=== PATIENT | female | born 1960 | race Two or more races ===

== ENCOUNTER 2024-07-19 10:11 | Outpatient (REF) | payer OTHER, SELFPAY ==
--- NOTE | ~2024-07-19 | XR_ITS ---
EXAMINATION: XR LEFT HIP XR PELVIS CLINICAL INFORMATION: Left hip pain. COMPARISON: None available. TECHNIQUE: AP and frog-leg lateral views of the left hip and an AP view of the pelvis. FINDINGS: Bones are osteopenic. Spinal stimulator device overlies the right iliac wing with lead overlying the left sacral ala. Mild osteoarthritis in the hips is characterized primarily by marginal osteophytes. Joint spaces are well-preserved. Mild osteoarthritis in the SI joints. No fractures. Enthesopathic spurs are present at the bilateral greater trochanters and anterior superior iliac spines. Chain kim in the central pelvis. XR/XR pelvis min 3V IMPRESSION: Mild osteoarthritis in the hips and SI joints. No acute osseous findings. Electronically signed by: Marquise Haji MD 07/25/2024 05:43 PM EDT
--- NOTE | ~2024-07-19 | XR_ITS ---
EXAMINATION: XR LEFT HIP XR PELVIS CLINICAL INFORMATION: Left hip pain. COMPARISON: None available. TECHNIQUE: AP and frog-leg lateral views of the left hip and an AP view of the pelvis. FINDINGS: Bones are osteopenic. Spinal stimulator device overlies the right iliac wing with lead overlying the left sacral ala. Mild osteoarthritis in the hips is characterized primarily by marginal osteophytes. Joint spaces are well-preserved. Mild osteoarthritis in the SI joints. No fractures. Enthesopathic spurs are present at the bilateral greater trochanters and anterior superior iliac spines. Chain kim in the central pelvis. XR/XR hip LT min 2V IMPRESSION: Mild osteoarthritis in the hips and SI joints. No acute osseous findings. Electronically signed by: Marquise Haji MD 07/25/2024 05:43 PM EDT
== END 2024-07-19 10:12 | disposition home or self-care (01) ==
LOC: HO.HOSX 10:11
PROVIDERS: Visit Provider Physician Assistant
DX: M25.552 Pain in left hip (principal); M53.3 Sacrococcygeal disorders, not elsewhere classified; G89.29 Other chronic pain
CPT/HCPCS: 72190; 73502; 99202

== ENCOUNTER 2024-07-19 10:11 | Outpatient (AMB) | payer OTHER, SELFPAY ==
--- NOTE | 2024-07-19 10:23 | HO.SPINEOV ---
Intake Visit Reasons: LBP Intake Note: Ms. Ankit Leon is here today c/o Low back pain. Commercial Drafter Required: No Allergies No Known Allergies [No Known Allergies*] Allergy (Unverified 07/27/20 15:01) Assessment & Plan Assessment & Plan (1) Left hip pain: Code(s): M25.552 - Pain in left hip Category: Medical (2) Chronic SI joint pain: Code(s): M53.3 - Sacrococcygeal disorders, not elsewhere classified; G89.29 - Other chronic pain Category: Medical Plan Dear Gautam, Thank you for referring Mrs Ankit Leon to our office today. She is a very nice 64-year-old female with a history of a previous lumbar surgery done 40 years ago who presents to the office today for evaluation of chronic left buttock pain going down into her anterior lateral thigh and her outer calf after a fall she took in November. She underwent 2 injections at your office, the L5-S1 level epidural, and did not see any significant relief from these. She has terrible amount of pain with standing and walking but also can not sit on her left buttock. She will take kgmo-uac-apeihib medications as needed. The pain can also be troublesome at night, she will have to sleep with some kind of pillow or firm object pushing on her back to try to help with the symptoms. She will take [id number]-trvrybm medications as needed for pain. She is here today for evaluation of the lumbar MRI done at [facility] showing possible crowding of the lateral recess at L5-S1. PMH: She is a diabetic, she has fibromyalgia, chronic pain, asthma, irregular heartbeats, chronic kidney disease, rheumatoid arthritis, stomach ulcers, , carpal tunnel release, cholecystectomy, gastric bypass, hernia repair, knee surgery, implantation of a sacral stimulator Social hx: She does not smoke, drink use any recreational drugs. Medications: Meloxicam, Tylenol, albuterol, omeprazole, vitamin-D, Motegrity, VESIcare, tramadol, Zofran, cetirizine, diclofenac, donepezil, duloxetine, amantadine, Asmanex, naltrexone Allergies: None Physical exam: She is awake alert oriented no acute distress, she is uncomfortable sitting in a chair, leaning to her right side. Her motor exam does not reveal any specific deficits, she has pain with movement of her left leg. She does not have a straight leg raise sign or any reproducible pain with straight leg raise movements. She does have significant pain very reproducible to what she feels on a daily basis with internal rotation of her hip and RAMY testing. Compression testing in a lateral position of the SI joint does reveal reproducible pain as well. Imaging review: There is a lumbar MRI done at [facility] in January of 2024 showing mild degenerative disc disease, there is some crowding of the left rule out lateral recess at L5-S1. For some reason the radiologist labeled this the S5 nerve root, but it would be the S1 nerve root in the lateral recess at L5-S1. It is not a significant amount of compression, but there is some crowding around the nerve. Impression: 64-year-old female, history of previous back surgery 40 years ago, who fell back in November in his now been having intense left buttock pain which will radiate down into her left anterior tibial region at times. It can be aggravated with walking, but is also present at rest and when she is lying on her left side at night. She has had 2 injections at the L5-S1 level with no appreciable relief of her symptoms. The MRI does show some crowding of this area. It is unusual that she did not get any relief from the injections if this was the source of her pain. She does have reproducible pain similar to what she has on a daily basis with SI joint provocative testing. It is well-known that the SI joint does approximate the L5 nerve in the pelvis and can reproduce symptoms similar to a lumbar radiculopathy and that we could be dealing with a traumatic SI joint inflammation or instability. I am wondering if she got an injection to this area it would help shed some light on the diagnosis. If the injection helped significantly, we could possibly consider SI joint fusion. Usually Dr. Fitch would want to serial injections with at least 80% improvement before confirming that diagnosis and offering surgery however. Thank you for allowing us to care for your patient. The total time spent with this visit with this patient was 45 minutes reviewing history, physical exam, lumbar imaging review, and implementation of treatment plan or further diagnostic testing Edi Fitch MD,PhD [facility] Orders: Orders XR pelvis min 3V Today G89.29 - Other chronic pain, M53.3 - Sacrococcygeal disorders, not elsewhere classified XR hip LT min 2V Today M25.552 - Pain in left hip Coding Level of Care Code New Pt Level 4 (88266) Diagnoses Left hip pain M25.552 Chronic SI joint pain M53.3; G89.29
== END 2024-07-19 11:20 | disposition home or self-care (01) ==
PROVIDERS: PCP Family Medicine Geriatric Medicine; Referring Provider Physician Assistant; Visit Provider Physician Assistant
DX: M25.552 Pain in left hip (principal); M53.3 Sacrococcygeal disorders, not elsewhere classified; G89.29 Other chronic pain
CPT/HCPCS: 99204

== ENCOUNTER 2025-04-25 13:48 | Outpatient (AMB) | payer MEDICAID, SELFPAY ==
--- NOTE | 2025-04-25 13:49 | HO.SPINEOV ---
Intake Visit Reasons: persisting pain Intake Note: Ms. Ankit Leon is here today c/o persisting back pain. 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 We saw her last year for an evaluation of back pain as well as pain on the the left SI joint that happened after a fall. She underwent an injection at the L5-S1 level with no relief in her symptoms. She continues to complain of midline back pain as well as the pain over the SI joint. Her previous MRI did not reveal any significant findings that we thought would lend itself to surgery, especially in light of the fact that she did not respond to the injections in that area with any positive improvement. We considered an alternate diagnosis of left SI joint inflammation after fall. At the time she was not all that interested in pursuing the injections, but she is back today to report that she is continuing to have pain and discomfort in that area and would like to have the injections. She is still localizes the pain over this area and is tender to palpation. Her gait is normal and again strength is normal. I will refer her back to for consideration of left SI joint injections with an eye toward SI joint fusion if she has to successive injections with at least 80% improvement in her pain. Total amount of time spent in this visit was 20 minutes in discussion of symptoms, previous lumbar MRI imaging results and subsequent plan of care Edi Fitch MD,PhD [facility] Orders: Referrals Physiatry Referral G89.29 - Other chronic pain, M53.3 - Sacrococcygeal disorders, not elsewhere classified Coding Level of Care Code Est Pt Level 3 (06105) Diagnoses Chronic SI joint pain M53.3; G89.29
--- OUTSIDE RECORDS SUMMARY | 2025-04-25 15:26 | XMS_ITS | Encounter Summary ---
Author Organization [facility] Address [address] [place] [address] Care Team Providers Care Supervisor [employer]intering [employer] Name Role Phone Sheba Wright MD Primary Care Provider [phone] Reason for Visit * Reason Onset Date Comments prior authorization 04/25/2025 Zepbound 2.5 MG Encounter Details Date Type Department Care Team ([facility] st Contact Info) Description 04/25/2025 Telephone Bariatric Surgery - [place] [address] [place] [phone] Marcos Curtis MD [address] [place] [address] prior authorization (Zepbound 2.5 MG) Social History Tobacco Use Types Packs/Day Years Used Date Smoking Tobacco: Never Smokeless Tobacco: Never Alcohol Use Standard Drinks/Week Comments Yes 0 (1 standard drink = 0.6 oz pur e alcohol) Comments No Sex and Gender Information Value Date Recorded Sex Assigned at Female 11/29/2024 5:01 PM EST Legal Sex Female 7:05 AM EST Gender Identity Female 11/29/2024 5:01 PM EST Sexual Orientation Straight 11/30/2024 9: 04 AM EST documented as of this encounter Functional Status * Are you deaf or do you have serious difficulty hearing? Answer Date of Assessment Author No 02/11/2025 1:04 AM Skinny Guido RN * Are you blind or do you have serious difficulty seeing, even when wearing glasses? Answer Date of Assessment Author No 02/11/2025 1:04 AM Skinny Guido RN * Do you have serious difficulty walking or climbing stairs? Answer Date of Assessment Author No 02/11/2025 1:04 AM EDT Skinny Clifton RN * Do you have serious difficulty dressing or bathing? Answer Date of Assessment Author No 02/11/2025 1:04 AM EDT Skinny Clifton RN * Because of a physical, mental, or emotional condition, do you have serious difficulty doing errandsalone such as visiting the doctor? Answer Date of Assessment Author No 02/11/2025 1:04 AM EDT Skinny Clifton RN documented as of this encounter Mental Status * Because of a physical, mental, or emotional condition, do you have serious difficulty concentrating, remembering, or making decisions? (5 years old or older) Answer Entry Date Author No 02/11/2025 1:04 AM EDT Skinny Clifton RN documented in this encounter Progress Notes * Hillary Norwood - 04/25/2025 10:09 AM EDT Patient is asking for a call in reference to her prior auth for Zepbound 2.5 MG She can be reached at [phone] documented in this encounter Plan of Treatment Upcoming Encounters Date Type Department Care Team (Late st Contact Info) Description 05/05/2025 10:30 AM EDT Consult Orthopedic Surgery - [place] [address] [facility] [address] [place] [phone] Davy Gardner DPM [address] [facility] [address] [place] [address] 06/16/2025 10:45 AM EDT Office Visit Bariatric Surgery - [place] [address] [facility] [address] [place] [phone] Marcos Curtis MD [address] [facility] [address] [place] [address] 07/28/2025 11:10 AM EDT Office Visit Gastroenterology - [place] [address] [facility] [address] [facility] [address] [place] [phone] Mary Silverman PA [address] [facility] [address] [place] [address] 08/04/2025 11:00 AM EDT Office Visit Orthopedic Surgery - [place] [address] [facility] [address] [place] [phone] Bonnie Harding PA [address] [facility] [address] [place] [address] documented as of this encounter Goals Goal Patient Goal Type Associated Problems Recent Progress Patient-Stated? Author PT STGs General No Marcos Power PT Note: Pt will be compliant with MD ENNIS protocol - inconsistent Pt will increase right shoulder PROM flexion to 90 degrees - Met Pt will increase right shoulder PROM abduction to 90 degrees - met Pt will increase right shoulder PROM ER to 30 degrees, measured with shoulder at 0 degree abduction - not met documented as of this encounter Visit Diagnoses Not on filedocumented in this encounter Care Teams Supervisor [employer]intering [employer] Relationship Specialty Start Date End Date Sheba Wright MD [address] [place] [address] PCP - General Internal Medicine 08/22/21 documented as of this encounter
== END 2025-04-25 14:12 | disposition home or self-care (01) ==
PROVIDERS: Visit Provider Physician Assistant
DX: M53.3 Sacrococcygeal disorders, not elsewhere classified (principal); G89.29 Other chronic pain
CPT/HCPCS: 99213

== ENCOUNTER → 2025-04-25 13:48 | Outpatient (BNVA) | payer MEDICAID, SELFPAY | PROVIDERS: Visit Provider Physician Assistant | DX: M53.3 Sacrococcygeal disorders, not elsewhere classified (principal); G89.29 Other chronic pain | CPT/HCPCS: 99212 ==

== ENCOUNTER 2025-09-22 10:12 | Outpatient (AMB) | payer MEDICAID, SELFPAY ==
--- OUTSIDE RECORDS SUMMARY | 2025-09-21 08:30 | XMS_ITS | Encounter Summary ---
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 Name Role Phone Sheba Wright MD Primary Care Provider [phone] Reason for Referral * Orthopedic (Routine) - Pending Review Specialty Diagnoses / Procedures Referred By Contac t Referred To Contact Orthopedic Surgery / Orthopaedic Surgery Diagnoses S/P right rotator cuff repair Bursitis of right shoulder Chronic right shoulder pain Procedures L Inj/Asp: R subacromial bursa Bonnie Harding PA [address] [address] Phone: tel: fax: Referral ID Status Reason Start Date Expiration Date V isits Requested Visits Authorized [id number] Pending Review 09/21/2025 09/21/2026 1 1 Reason for Visit * Reason Comments Follow-up Encounter Details Date Type Department Care Team (Late st Contact Info) Description 09/21/2025 8:30 AM EST Office Visit Orthopedic Surgery - [place] [address] [phone] Bonnie Harding PA [address] [address] S/P right rotator cuff repair (Primary Dx); Bursitis of right shoulder; Chronic right shoulder pain Social History Tobacco Use Types Packs/Day Years Used Date Smoking Tobacco: Never Smokeless Tobacco: Never Alcohol Use Standard Drinks/Week Comments Yes 0 (1 standard drink = 0.6 oz pur e alcohol) weekends 1-3 Comments No Sex and Gender Information Value Date Recorded Sex Assigned at Female 11/29/2024 5:01 PM EST Legal Sex Female 7:05 AM EST Gender Identity Female 11/29/2024 5:01 PM EST Sexual Orientation Straight 11/30/2024 9: 04 AM EST documented as of this encounter Functional Status * Are you deaf or do you have serious difficulty hearing? Answer Date of Assessment Author No 07/04/2025 7:46 AM Pj Irwin RN * Are you blind or do you have serious difficulty seeing, even when wearing glasses? Answer Date of Assessment Author No 07/04/2025 7:46 AM Pj Irwin RN * Do you have serious difficulty walking or climbing stairs? Answer Date of Assessment Author No 07/04/2025 7:46 AM Pj Irwin RN * Do you have serious difficulty dressing or bathing? Answer Date of Assessment Author No 07/04/2025 7:46 AM Pj Irwin RN * Because of a physical, mental, or emotional condition, do you have serious difficulty doing errandsalone such as visiting the doctor? Answer Date of Assessment Author No 07/04/2025 7:46 AM Pj Irwin RN documented as of this encounter Mental Status * Because of a physical, mental, or emotional condition, do you have serious difficulty concentrating, remembering, or making decisions? (5 years old or older) Answer Entry Date Author No 07/04/2025 7:46 AM Pj Irwin RN documented in this encounter Progress Notes * ELISA Davalos - 09/21/2025 8:30 AM ESTAssociated Order(s): L Inj/Asp: R subacromial bursa Post-Procedure Diagnose(s): Chronic right shoulder pain; Bursitis of right shoulder; S/P right rotator cuff repair Patient: Laurel Leon : 1960 Date: 09/21/25 Chief Complaint: Chief Complaint Patient presents with Right Shoulder - Follow-up I have obtained verbal consent from Laurel Leon prior to the recording. I have advised Laurel Valiente that she may refuse the recording and require the recording to be turned off at any time during this encounter. HPI: Laurel Leon is a 65 y.o. year old female who presents for post-operative exam. Pt presents for 10 months follow up after procedure noted below. Date of Surgery: 12/09/24 Surgeon: Dr. Paul Richter Procedure: Large Right rotator cuff repair large acromial and greater tuberosity bone spur debridement; Side to side as well as 2 anchor repair This is a 65-year-old female who is now 10 months status post above-stated procedure. Patient had alarge rotator cuff repair which has led to a slow recovery process. At her 6-month appointment in April 2025 patient received a cortisone injection to the subacromial space as well as a new prescription for physical therapy. Over the past 6 months the situation has not improved her pain level has stabilized. She did have a cortisone response that was approximately 75% of an pain relief but only for 4 to 6 weeks. Patient is eager for pain relief at this point. History of Present Illness The patient presents for evaluation of persistent right shoulder pain. Right Shoulder Pain - Rates pain as 8-10 during simple daily activities and 6 at rest - Pain does not disrupt sleep but is exacerbated by functional use of the shoulder - Has not engaged in physical therapy since last consultation with Dr. Francois in April 2025 - Cortisone injection in April 2025 provided approximately 75% relief for 4-6 weeks - Currently not taking any medication for shoulder pain - Previous anti-inflammatory treatments have been ineffective - Requests another corticosteroid injection and a potent analgesic Her medical history includes a significant rotator cuff repair of the right shoulder performed on December 09, 2024. Occupation: Disabled Allergies: Current Allergies[1] Medications: Current Outpatient Medications Medication Instructions clotrimazole-betamethasone (LOTRISONE) 1-0.05 % cream Topical, 2 times daily donepeziL (ARICEPT) 10 mg, oral, Daily DULoxetine (CYMBALTA) 60 mg, oral, Daily ergocalciferol (VITAMIN D-2) 50,000 Units, oral, Weekly esomeprazole (NEXIUM) 40 mg, oral, Every morning before breakfast, Do not open capsule. famotidine (PEPCID) 40 mg, oral, Nightly ferrous sulfate 325 mg, oral, Daily with breakfast, Do not crush, chew, or split. memantine (NAMENDA) 10 mg, oral, Daily ondansetron ODT (ZOFRAN-ODT) 4 mg, translingual, Every 8 hours PRN phentermine 15 mg, oral, Every morning before breakfast senna-docusate (PERICOLACE) 8.6-50 mg per tablet 1 tablet, oral, Daily SUMAtriptan (IMITREX) 25 mg, oral, Once as needed, May repeat dose once in 2 hours if no relief. Donot exceed 2 doses in 24 hours. topiramate (TOPAMAX) 50 mg, oral, Nightly Physical Exam: There were no vitals filed for this visit. There is no height or weight on file to calculate BMI. Physical Exam APPEARANCE: Alert and in no acute distress Shoulder: Right Inspection: No bony abnormalities, normal muscle bulk symmetry Vascular: Warm and well perfused in the affected extremity and no peripheral edema noted. Palpation: AC joint/distal clavicle region: None anterior shoulder /proximal biceps region: Moderate anterior pain posterior periscapular region: None lateral acromial /greater tuberosity region: Moderate lateral pain Range of motion: Abduction: Limited to 80?? Forward Flexion: Limited to 140?? External Rotation: Limited to 30?? Internal Rotation: Limited to L4 Muscle strength: Supraspinatus (empty can test): 4/5 with pain infraspinatus (external rotation strength with arm at the side): 3/5 with pain subscapularis (belly press test): 5/5 with mild pain Special tests: Painful arc test: positive at 80 degrees Impingement Test: Positive Love: Positive [place]: Not tested Images: Date of Visit: 12/30/24 Reason for visit: Right shoulder post-op Views: AP and Y-view right shoulder Findings: Humeral head appears smooth. Glenohumeral joint space and articular margins are intact. Scapular Y show the glenohumeral joint located and centered Moderate arthrosis of acromioclavicular joint. No unusual calcifications. No fractures/ dislocations noted Expected post op changes noted in humeral head. Impression: Right shoulder: No acute osseous pathology Appropriate postoperative changes noted as above Moderate AC arthrosis Read by: Bonnie Harding PA-C Assessment and Plan: 1. S/P right rotator cuff repair 2. Bursitis of right shoulder 3. Chronic right shoulder pain This is a 65 y.o. year old female who is now 10 months status post large rotator cuff repair (December 09, 2024). Patient continues to complain of constant pain. She is frustrated with her level of pain and functional activity level. She is eager to pursue any treatment option that will help relieveher pain. Patient requesting pain medication. Nonsteroidal anti-inflammatory is of no benefit to her. Long-term treatment plan was discussed. Rather than pain medication even though the timeframe may be limited we will repeat cortisone injection to the right shoulder at this point and set her up for a preop appointment with Dr. Richter to review all treatment options including possible surgical i ntervention. Assessment & Plan Right shoulder pain Persistent pain rated 8-10 during activity and 6 at rest, not disturbing sleep but worsened by use.Cortisone injection in 04/2025 provided temporary relief. Offered, accepted and administered cortisone injection today. Preoperative appointment with Dr. Richter to discuss surgical options, including possible shoulder replacement, focusing on pain relief rather than functional improvement. Consultation with PCP for additional pain management if needed. Anti-inflammatory medications previously ineffective. -Activity: proceed with activity as tolerated. stay below pain threshold. -Pain Management: subacromial bursa cortisone injection - see below -Diagnostic plan: Preoperative appointment with Dr. Richter to discuss mcc treatment options. -Clinical decision making: brief discussion regarding risks and benefits of surgical options, including shoulder replacement, focusing on pain relief rather than functional improvement. Follow-up: Preoperative appointment with Dr. Richter. \Activity: slowly progress activities as tolerated Follow up: Patient to follow up with Dr. Richter as noted above. Patient educated follow-up sooner for worsening pain or any other concerns. Patient verbalized understanding and agreement with plan denies any questions or concerns this time. Orders Placed This Encounter L Inj/Asp Follow up for next available pre-op with Dr Richter. Future appointments: 10/10/2025 Procedure: L Inj/Asp: R subacromial bursa Indications: pain Details: 22 G needle, posterior approach Medications: 3 mL BUPivacaine HCl 0.5 %; 3 mL lidocaine 1 %; 40 mg triamcinolone acetonide 40 mg/mL Informed Consent: Laterality: Right Relevant images/test results available and reviewed: no Health status cleared: N/A Procedure/treatment, purpose, treatment alternatives, risks/potential complications and benefits explained: yes Risk/complications/benefits details: Risks and benefits associated with the injection reviewed which can include but not limited to infection, bleeding, bruising, transient synovitis, no improvement in symptoms. Patient questions answered: yes Patient agrees, verbalizes understanding, and wants to proceed: yes Consent given by: Patient Informed consent discussion completed by Physician/MARINA with patient: Verbal Pre-procedure timeout performed: yes Post injection instructions given and patient advised to ice the area tonight. Questions answered. Patient tolerated procedure well. No complications encountered. Today's documentation was made using voice recognition software.This note may contain grammatical errors secondary to this software. ELISA Davalos [1] Allergies Allergen Reactions Gadolinium-Containing Contrast Media Hives House Dust Sneezing Bactrim [Sulfamethoxazole-Trimethoprim] Rash, GI intolerance and Heartburn Ibuprofen documented in this encounter Plan of Treatment Upcoming Encounters Date Type Department Care Team (Late st Contact Info) Description 09/28/2025 8:45 AM EST Appointment [facility] Xray [address] [place] [phone] 10/10/2025 9:00 AM EST Consult Orthopedic Surgery [facility] [address] [phone] Paul Richter MD [address] [address] 11/24/2025 10:00 AM EST Office Visit Orthopedic Surgery [facility] [address] [phone] Davy Gardner DPM [address] [phone] 12/05/2025 2:30 PM EST Office Visit [facility] Hematology Oncology [address] [place] [phone] Melecio Posey MD [address] [place] [phone] 12/22/2025 10:45 AM EST Office Visit Bariatric Surgery - [place] 175 [facility] [address] [place] [phone] Marcos Curtis MD [address] [place] [phone] 04/17/2026 1:00 PM EDT Office Visit Gastroenterology - [address] [place] [address] 299 [facility] [address] [place] [phone] Mary Silverman PA 299 [facility] [address] [place] [address] documented as of this encounter Goals Goal Patient Goal Type Associated Problems Recent Progress Patient-Stated? Author PT LTG - 8 visits General No Serena Muir PT Note: Patient reports subjective decrease in shoulder pain Patient is able to achieve 140 degrees of R shoulder flexion Patient is able to achieve 140 degrees of R shoulder abduction Patient is able to achieve 4+/5 shoulder flexion and abduction strength Patient is independent and compliant with HEP documented as of this encounter Procedures Procedure Name Priority Date/Time Associated Diagnosis Comments AK ARTHROCENTESIS/ASPI RATION/INJECTION MAJOR JOINT/BURSA W/O U/S GUIDANCE Routine 09/21/2025 8:30 AM EST S/P right rotator cuff repair Bursitis of right shoulder Chronic right shoulder pain documented in this encounter Results * AK ARTHROCENTESIS/ASPIRATION/INJECTION MAJOR JOINT/BURSA W/O U/S GUIDANCE (09/21/2025 8:30 AM EST) Narrative Bonnie Harding PA - 09/21/2025 8:30 AM EST ELISA Davalos 09/21/2025 9:23 AM L Inj/Asp: R subacromial bursa Indications: pain Details: 22 G needle, posterior approach Medications: 3 mL BUPivacaine HCl 0.5 %; 3 mL lidocaine 1 %; 40 mg triamcinolone acetonide 40 mg/mL Informed Consent: Laterality: Right Relevant images/test results available and reviewed: no Health status cleared: N/A Procedure/treatment, purpose, treatment alternatives, risks/potential complications and benefits explained: yes Risk/complications/benefits details: Risks and benefits associated with the injection reviewed which can include but not limited to infection, bleeding, bruising, transient synovitis, no improvement in symptoms. Patient questions answered: yes Patient agrees, verbalizes understanding, and wants to proceed: yes Consent given by: Patient Informed consent discussion completed by Physician/MARINA with patient: Verbal Pre-procedure timeout performed: yes us Bonnie PÉREZ IN CLINIC/BEDSIDE ORDERABLES Final Result documented in this encounter Visit Diagnoses Diagnosis S/P right rotator cuff repair- Primary Bursitis of right shoulder Chronic right shoulder pain Pain in joint, shoulder region documented in this encounter Administered Medications Inactive Administered Medications - up to 3 most recent administrations Medication Order MAR Action Action Date Dose Rate Site BUPivacaine HCl (MARCAINE) 0.5 % injection 3 mL 3 mL, Once PRN Procedure, Starting on Fri09/21/25 at 0830, For 1 doseIndications:S/P right rotator cuff repair,Bursitis of right shoulder,Chronic right shoulder pain Given 09/21/2025 8:30 AM EST 3 mL lidocaine (XYLOCAINE) 1 % injection 3 mL 3 mL, Once PRN Procedure, Starting on Fri09/21/25 at 0830, For 1 doseIndications:S/P right rotator cuff repair,Bursitis of right shoulder,Chronic right shoulder pain Given 09/21/2025 8:30 AM EST 3 mL triamcinolone acetonide (KENALOG-40) 40 mg/mL injection 40 mg 40 mg, Once PRN Procedure, Starting on Fri09/21/25 at 0830, For 1 doseIndications:S/P right rotator cuff repair,Bursitis of right shoulder,Chronic right shoulder pain Given 09/21/2025 8:30 AM EST 40 mg documented in this encounter Care Teams Dieing Out Machine Operator Relationship Specialty Start Date End Date Sheba Wright MD [address] [place] [phone] PCP - General Internal Medicine 08/22/21 documented as of this encounter
--- NOTE | 2025-09-22 10:30 | A.PHYSOV ---
Vital Signs 09/22/25 10:32 Height 5 ft 4 in Weight 163 lb BMI 28.0 Intake Visit Reasons: 3M FUV Intake Note: Patient is a 66 year old female here today for a new patient appointment . Patient is having low back pain. Egyptologist Required: No Allergies No Known Allergies Allergy (Verified 09/22/25 10:33) HPI Comments Details: History of Present Illness The patient is a 65-year-old female presenting with left-sided low back and hip pain. The left sacroiliac joint pain has been persistent, with the last injection administered on May 31, 2025, providing a 70% reduction in pain for three months. Despite adherence to a physician-directed home exercise plan, the pain has worsened, prompting a request for a repeat injection. The patient also reports lateral left hip pain, exacerbated by ambulation and sleeping on the left side. The last left hip bursal injection was on June 16, 2025, and she is requesting a repeat due to persistent symptoms. She has a pain level today of 7/10. [facility] Surgical History H/O shoulder surgery History of back surgery History of carpal tunnel surgery History of cancer surgery H/O: section H/O: knee surgery (Unknown) Social History Alcohol intake: current Alcohol intake frequency: holidays/special occasions only Patient Tobacco Use Status: Never used Tobacco Review of Systems Narrative Review of Systems - Musculoskeletal: Reports left-sided low back and hip pain, worsened with ambulation and sleeping on the left side. Physical Exam Exam Exam: Physical Exam Lumbar Spine: She is tender to the left lower lumbar facets. She has full range of motion of her lumbar spine. She does have an increase in pain with facet loading. Special Tests: Lhermittes sign was negative Heel Toe walk is normal Left straight leg raise: Negative Right straight leg raise: Negative Special tests Rick test is positive left Ganslen's test is positive left SI Joint compression test positive right Conchita test negative Piriformis stretch is negative Lower Extremities: Neuro: Sensation: Intact to lower extremities bilaterally Strength L2 (Psoas): 5/5 on the left and 5/5 on the right. L3 (Quads): 5/5 on the left and 5/5 on the right. L4 (Ant tibialis): 5/5 on the left and 5/5 on the right. L5 (EHL) 5/5 on the left and 5/5 on the right. S1 (Gastroc): 5/5 on the left and 5/5 on the right. DTR L4: (Patellar) Left 2 Right 2 S1: (Achilles) Left 2 Right 2 Babinski Downgoing No pathologic clonus. No involuntary movement. Vital Signs: BMI result Body Mass Index 28.0 Office Procedures AMB Hip Injection AMB Hip Injection Procedure Details: Left Greater trochanteric bursal injection: The risks, benefits and complications of the left greater trochanteric bursitis/gluteal tendinopathy were discussed with the patient, including but not limited to infection, increased serum glucose, nerve damage, bleeding and pain. All questions were answered to the patient's satisfaction. Verbal consent was obtained. The patient was eager to proceed. Patient was cleansed with Betadine, ethyl chloride was then used to desensitize the skin. Using an a 25-gauge needle 40 mg of Kenalog and 3 mL 2% lidocaine were injected over the greater trochanter of maximal tenderness. The patient tolerated the procedure well without immediate complication. Postinjection instructions were given. Hip (Bursa) Injection - : Left All charges added?: Procedure code (CPT) selection complete Office Meds Kenalog 40 mg/mL suspension for injection Performing Provider: ELISA Nathan Performing Location: [facility] Administered by: ELISA Nathan on 09/22/25 10:59 Dose Route Admin Location Dispensed Lot Number Expiration Date [facility] Ammonia Operator 40 mg intrabursal 1 mL [address]-3 [employer] Total Dispensed Waste 1 mL 0 % lidocaine (PF) 20 mg/mL (2 %) injection solution Performing Provider: ELISA Nathan Performing Location: [facility] Administered by: ELISA Nathan on 09/22/25 10:59 Dose Route Admin Location Dispensed Lot Number Expiration Date [facility] Am[employer] Operator 60 mg intrabursal 3 mL [id number] Total Dispensed Waste 3 mL 0 % Assessment & Plan Assessment & Plan (1) Chronic SI joint pain: Code(s): M53.3 - Sacrococcygeal disorders, not elsewhere classified; G89.29 - Other chronic pain Category: Medical (2) Left hip pain: Code(s): M25.552 - Pain in left hip Category: Medical (3) Trochanteric bursitis of left hip: Code(s): M70.62 - Trochanteric bursitis, left hip Category: Medical Plan Pain Management - Affect: Anxiety and needle phobia noted. - Analgesia: Previous injections provided 70% pain relief for three months. - Activities of Daily Living: Pain affects ambulation and sleeping. Plan Patient was informed and verbally consented to the use of an ambient scribe for clinic note documentation during this visit. 1. Left Sacroiliac Joint Pain The patient will undergo a repeat left sacroiliac joint injection with sedation due to anxiety and needle phobia. We will proceed once prior authorization is obtained. 2. Left Hip Bursitis The patient consented to a left hip bursal injection today and was provided with post-injection instructions, including the use of cold or moist compresses and continuation of abduction exercises. Discussion Notes I discussed with the patient the plan to repeat the left sacroiliac joint injection with sedation due to her anxiety and needle phobia. We will contact her once prior authorization is obtained. The patient consented to the left hip bursal injection today and was given post-injection care instructions. Patient Instructions - Use cold or moist compresses for 15 minutes up to 5 times daily on the left hip. - Continue abduction exercises as directed. - Await contact for scheduling the left sacroiliac joint injection once prior authorization is obtained. Orders: Orders AMB Hip/Bursa Injection Today M70.62 - Trochanteric bursitis, left hip Referrals Physiatry Procedure Notification G89.29 - Other chronic pain, M53.3 - Sacrococcygeal disorders, not elsewhere classified Coding Level of Care Code Tele Est Pt Level 3 (31117) Diagnoses Chronic SI joint pain M53.3; G89.29 Left hip pain M25.552 Trochanteric bursitis of left hip M70.62 CPT Codes AMB Hip Injection - Hip/Bursa Injection - 39246: Left ([id number])
[2025-09-22 10:32] VITALS: BMI 28.0
--- OUTSIDE RECORDS SUMMARY | 2025-09-22 12:15 | XMS_ITS | Encounter Summary ---
Author Organization [facility] Address [address] [place] [address] Care Team Providers Care Store Custodian Name Role Phone Sheba Wright MD Primary Care Provider [phone] Encounter Details Date Type Department Care Team (Late st Contact Info) Description 09/07/2025 Results Follow-Up Adult Medicine [facility] [address] [place], [place] [phone] Rosana Vázquez NP [address] [place], [place] Social History Tobacco Use Types Packs/Day Years [...] Pj Irwin RN documented in this encounter Ordered Prescriptions Prescription Sig Dispense Quantity Refills Last Filled Start Date End Date senna-docusate (PERICOLACE) 8.6-50 mg per tablet Take 1 tablet by mouth 1 (one) time each day. 90 each 1 09/08/2025 ferrous sulfate 325 mg (65 mg iron) EC tablet Take 1 tablet (325 mg total) by mouth 1 (one) time each day with breakfast. Do not crush, chew, or split. 90 each 1 09/08/2025 ergocalciferol (VITAMIN D-2) 1,250 mcg (50,000 unit) capsule Take 1 capsule (50,000 Units total) by mouth 1 (one) time per week. 12 capsule 09/08/2025 ergocalciferol (VITAMIN D-2) 1,250 mcg (50,000 unit) capsule Take 1 capsule (50,000 Units total) by mouth 1 (one) time per week. 4 capsule 2 09/08/2025 documented in this encounter Plan of Treatment Upcoming Encounters Date Type Department Care Team (Late st Contact Info) Description 09/28/2025 8:45 AM EST Appointment [facility] Xray [address] [place] [phone] 10/10/2025 9:00 AM EST Consult Orthopedic Surgery - [place] [address] [facility] [address] [place] [phone] Paul Richter MD 175 [facility] [address] [place] [address] 11/24/2025 10:00 AM EST Office Visit Orthopedic Surgery - [place] [address] [facility] [address] [place] [phone] Davy Gardner DPM 175 [facility] [address] [place] [phone] 12/05/2025 2:30 PM EST Office Visit [facility] Hematology Oncology [address] [place] [phone] Melecio Posey MD [address] [place] [phone] 12/22/2025 10:45 AM EST Office Visit Bariatric Surgery - [place] [address] [facility] [address] [place] [phone] Marcos Curtis MD [address] [place] [phone] 04/17/2026 1:00 PM EDT Office Visit Gastroenterology - [address] [facility] [address] [facility] [address] [place] [phone] Mary Silverman PA [address] [facility] [address] [place] [address] documented as of this encounter Goals Goal [...] with HEP documented as of this encounter Visit Diagnoses Not on filedocumented in this encounter Discontinued Medications Medication Sig Discontinue Reason Start Date End Da te cholecalciferol (VITAMIN D-3) 50 mcg (2,000 unit) tablet Take 1 tablet (2,000 Units total) by mouth 1 (one) time each day. 09/07/2025 09/08/2025 ergocalciferol (VITAMIN D-2) 1,250 mcg (50,000 unit) capsule Take 1 capsule (50,000 Units total) by mouth 1 (one) time per week. Reorder 09/08/2025 09/08/2025 documented as of this encounter Care Teams Store Custodian Relationship Specialty Start Date End Date Sheba Wright MD [address] [place] [address] PCP - General Internal Medicine 08/22/21 documented as of this encounter
--- OUTSIDE RECORDS SUMMARY | 2025-09-22 12:15 | XMS_ITS | Clinical Summary ---
Author Organization [facility] Address [address] [place] [address] Phone Care Team Providers Care Supervisor Particleboard Name Role Phone Sheba Wright MD Primary Care Provider [phone] Allergies Active Allergy Reactions Criticality Noted Date Comments Sulfamethoxazole-Trimethopr im Rash,GI intolerance,Heartburn 07/21/2025 Gadolinium-Containing Contrast Media Hives High 11/24/2024 House Dust Sneezing Medium 09/16/2024 Ibuprofen 12/04/2023 Medications ondansetron ODT (ZOFRAN-ODT) 4 mg disintegrating tablet Dissolve 1 tablet (4 mg total) on top of the tongue every 8 (eight) hours if needed for nausea or vomiting. 30 tablet 1 025 Active SUMAtriptan (IMITREX) 25 mg tabletIndications :Migraine with aura and without status migrainosus, not intractable Take 1 tablet (25 mg total) by mouth 1 (one) time if needed for migraine. May repeat dose once in 2 hours if no relief. Do not exceed 2 doses in 24 hours. 9 tablet 025 Active phentermine 15 mg capsuleIndication s:Over weight Take 1 capsule (15 mg total) by mouth 1 (one) time each day before breakfast. Max Daily Amount: 15 mg 30 each 025 Active topiramate (Topamax) 50 mg tabletIndications :Over weight Take 1 tablet (50 mg total) by mouth at bedtime. 30 each 025 Active memantine (NAMENDA) 10 mg tabletIndications :Forgetfulness TAKE 1 TABLET BY MOUTH 1 TIME EACH DAY. 90 tablet 1 025 Active donepeziL (ARICEPT) 10 mg tablet TAKE 1 TABLET BY MOUTH 1 TIME EACH DAY. 90 tablet 1 025 Active esomeprazole (NexIUM) [address] capsule Take 1 capsule (40 mg total) by mouth 1 (one) time each day before breakfast. Do not open capsule. 90 capsule 1 025 Active famotidine (PEPCID) 40 mg tablet Take 1 tablet (40 mg total) by mouth at bedtime. 90 each 1 025 2025 Active clotrimazole-beta methasone (LOTRISONE) 1-0.05 % cream Apply topically 2 (two) times a day for 28 days. 30 g 3 025 2024 Active DULoxetine (CYMBALTA) [address] capsule Take 1 capsule (60 mg total) by mouth 1 (one) time each day. 90 capsule 1 025 Active ergocalciferol (VITAMIN D-2) 1,250 mcg (50,000 unit) capsule Take 1 capsule (50,000 Units total) by mouth 1 (one) time per week. 12 capsule 025 Active ferrous sulfate 325 mg (65 mg iron) EC tablet Take 1 tablet (325 mg total) by mouth 1 (one) time each day with breakfast. Do not crush, chew, or split. 90 each 1 025 Active senna-docusate (PERICOLACE) 8.6-50 mg per tablet Take 1 tablet by mouth 1 (one) time each day. 90 each 1 025 Active estradioL (ESTRACE) 0.01 % (0.1 mg/gram) vaginal cream Apply a pea-sized amount of cream with applicator into the vagina daily at bedtime for 2 weeks, then two times a week at night. 024 2024 Discontinued(T herapy completed) cholecalciferol (VITAMIN D-3) 50 mcg (2,000 unit) tablet TAKE 1 TABLET BY MOUTH DAILY. 90 tablet 1 025 2024 Discontinued(R eorder) ciclopirox (PENLAC) 8 % solution Apply topically at bedtime. Apply over nail and surrounding skin. Apply daily over previous coat. After seven (7) days, may remove with alcohol and continue cycle. 6.6 mL 3 025 2024 methenamine hippurate (HIPREX) 1 gram tabletIndications :prevention of bacterial urinary tract infection Take 1 tablet (1 g total) by mouth 2 (two) times a day with meals. 60 tablet 5 025 2024 Discontinued(T herapy completed) DULoxetine (CYMBALTA) [address] capsuleIndication s:Other chronic pain,Fibromyalgia TAKE 1 CAPSULE BY MOUTH DAILY. 90 capsule 1 025 2024 Discontinued(R eorder) tirzepatide (Mounjaro) 5 mg/0.5 mL injection Inject 0.5 mL (5 mg total) under the skin every 7 (seven) days. 2 mL 025 2024 cephalexin (KEFLEX) 250 mg capsule Take 1 capsule (250 mg total) by mouth 4 (four) times a day for 5 days. 20 each 025 2024 cholecalciferol (VITAMIN D-3) 50 mcg (2,000 unit) tablet Take 1 tablet (2,000 Units total) by mouth 1 (one) time each day. 90 tablet 1 025 2024 Discontinued ergocalciferol (VITAMIN D-2) 1,250 mcg (50,000 unit) capsule Take 1 capsule (50,000 Units total) by mouth 1 (one) time per week. 4 capsule 2 025 2024 Discontinued(R eorder) Hospital, Clinic, or Other Facility Administered Medication Ordered Dose Route Frequency Start Date End Date Status BUPivacaine HCl (MARCAINE) 0.5 % injection 3 mLIndications:S/P right rotator cuff repair,Bursitis of right shoulder,Chronic right shoulder pain 3 mL Once PRN Procedure 09/21/2025 09/21/2025 Ended lidocaine (XYLOCAINE) 1 % injection 3 mLIndications:S/P right rotator cuff repair,Bursitis of right shoulder,Chronic right shoulder pain 3 mL Once PRN Procedure 09/21/2025 09/21/2025 Ended triamcinolone acetonide (KENALOG-40) 40 mg/mL injection 40 mgIndications:S/P right rotator cuff repair,Bursitis of right shoulder,Chronic right shoulder pain 40 mg Once PRN Procedure 09/21/2025 09/21/2025 Ended Active Problems Problem Noted Date Diagnosed Date Traumatic complete tear of right rotator cuff Assessment & Plan (11/30/2024 12:11 PM EST): Patient has surgery scheduled for December 10, 2024. She has preop scheduled with PCP on December 02, 2024. Patient is to continue current pain regimen as prescribed by pain management. She is on meloxicam 15 mg daily. Patient can also take OTC Tylenol. I reiterate that she should not take ibuprofen, Motrin, Advil, or Aleve while taking meloxicam. Advised the patient to rest the shoulder as much as possible and to avoid overhead lifting activities, heavy lifting activities, twisting, or activities that could cause undo stress to the shoulder. Advised the patient to apply moist heat to the shoulder TID PRN Orders: meloxicam (Mobic) 15 mg tablet; Take 1 tablet (15 mg total) by mouth 1 (one) time each day. Calcific tendinitis of right upper arm 4 Breast cancer ([facility] V24, [facility] V28) 024 Overview (08/10/2024): S/p lumpectomy & radiation Class 1 obesity due to exces s calories without serious comorbidity with body mass index (BMI) of 32.0 to 32.9 in adult 08/10/2024 Forgetfulness 05/24/2024 Assessment & Plan (11/30/2024 12:11 PM EST): Patient has ongoing forgetfulness/amnesia. She was followed by neurologist who retired. Referral sent to neurologist for fibromyalgia, forgetfulness and headache management. Referral was printed and given to patient in office today. Patient agreed to call neurologist to schedule appointment. Patient is to continue Namenda 10 mg as prescribed. She is also prescribed for Aricept, but it is unclear if she has been taking this medication. I would like neurologist input on managing medications. Orders: memantine (NAMENDA) 10 mg tablet; Take 1 tablet (10 mg total) by mouth 1 (one) time each day. Gastroesophageal reflux disease without esophagi tis 05/24/2024 Migraine with aura and witho ut status migrainosus, not intractable 05/24/2024 Assessment & Plan (11/30/2024 12:11 PM EST): Patient has ongoing migraines. She is to continue sumatriptan as prescribed. Referral sent to neurologist for fibromyalgia, forgetfulness and headache management. Referral was printed and given to patient in office today. Patient agreed to call neurologist to schedule appointment. Orders: SUMAtriptan (IMITREX) 25 mg tablet; Take 1 tablet (25 mg total) by mouth 1 (one) time if needed for migraine. May repeat dose once in 2 hours if no relief. Do not exceed 2 doses in 24 hours. Chest pain 01/02/2022 Overview (08/10/2024): Last Assessment & Plan: Patient has an intermediate risk for arthroscopic coronary disease with concerns of chest discomfort she is had various pains the pain that she has now is a point tenderness over the left breast which is reproducible most likely the source of her pain. She is noted to have intermittent risks I concern over the underlying coronary artery disease possibilities we will send her for stress echocardiogram. If that stress test is normal I recommend that her primary care team take further steps in eliciting the possible etiology for pain including the possible need for a bone scan to rule out the possibility of rib issues since that she has been seen in the emergency room in April of last year for the exact same discomfort We will have the patient called after the stress test if is normal no further cardiac work-up will be needed and she can follow-up with her primary care team for other etiologies for this left-sided chest discomfort Abnormal EKG 12/28/2021 Esophageal dysmotility 12/28/2021 Overview (08/10/2024): Severe on barium swallow 12/19/21. Seeing gastro Hyperlipidemia 11/19/2021 Urinary incontinence 06/28/2021 Overview (08/10/2024): Referred to urology, discharged from the practice for non compliance 06/2021 Assessment & Plan (11/30/2024 12:11 PM EST): Patient is to continue following up with urogynecology for further treatment and management of stress/urge incontinence since he. Per patient she has been receiving Botox injection for incontinency every 6 months by your plan consultant. Amnesia 06/14/2021 Overview (08/10/2024): Follows with neurology Diverticulitis 06/14/2021 Anxiety 05/14/2018 Diabetes mellitus, type 2 ([facility] V24, [facility] V28) 05/14/2018 Assessment & Plan (11/30/2024 12:11 PM EST): Last A1c 5.8% 6 months ago. She is to continue to maintain a low carb diet to optimize blood sugar levels (avoid sweet drinks/snacks, excess bread, pasta intake and replace red meat with chicken and fish and increase salad intake). Attempt exercise daily or at least 3 times a week for 30 min. Complications associated with uncontrolled diabetes includes, but are not limited to an increased risk of cardiovascular disease, retinopathy, neuropathy, renal disease, increased risk of infections with open wounds and amputations. Orders: Hemoglobin A1c; Future Basic metabolic panel; Future Lipid panel with reflex to direct LDL; Future Fibromyalgia 05/14/2018 Encounters Date Type Department Care Team Description 09/21/2025 8:30 AM EST Office Visit Orthopedic Surgery [facility] [address] [phone] Bonnie Harding PA S/P right rotator cuff repair (Primary Dx); Bursitis of right shoulder; Chronic right shoulder pain 09/07/2025 3:10 PM EDT Lab Draw Station [address] [phone] Bruises easily; Fatigue, unspecified type; Other chronic pain; Amnesia; Forgetfulness 09/07/2025 2:30 PM EDT Office Visit [address] [phone] Rosana Vázquez, JOHNNA Bruises easily (Primary Dx); Fatigue, unspecified type; Type 2 diabetes mellitus without complication, without long-term current use of insulin (CMS/HCC V24, CMS/HCC V28); Forgetfulness; Amnesia; Other chronic pain; Generalized abdominal pain; Diarrhea, unspecified type 09/07/2025 Results Follow-Up [address] [phone] Rosana Vázquez NP 09/05/2025 Telephone Urogynecology [address] [place] [address] Sheree Boyd RN 09/02/2025 Results Follow-Up Urogyne[address] [place] [address] Sheree Boyd RN 09/01/2025 10:45 AM EDT Office Visit Urogynecolog[address] [phone] Ann Beckham MD OAB (overactive bladder) (Primary Dx); Urinary tract infection with hematuria, site unspecified; Vaginal atrophy; Dyspareunia in female 09/01/[address] [phone] Sheba Wright MD 08/25/2025 3:00 PM EDT Office Visit Orthopedic Surgery [facility] 250 175 [facility] [address] [place] [address] Davy Gardner, DPM Dermatophytosis of nail (Primary Dx); Ingrowing nail; Diabetic mononeuropathy simplex (CMS/HCC V24, CMS/HCC V28); Pain in toe of right foot; Pain in toe of left foot 08/18/2025 Telephone Bariatric Surgery [facility] 175 [facility] [address] [place] [address] Marcos Curtis MD 08/05/2025 11:50 AM EDT - 08/05/2025 3:00 PM EDT Emergency [facility] Emergency [address] [place] [phone] Cynthia Silverio MD Great toe pain, left (Primary Dx) Discharge Disposition: Home or Self Care 07/29/2025 Telephone Gastroenterology [facility] 175 [place] 175 [facility] [address] [place] [phone] Mary Silverman PA 07/28/2025 11:10 AM EDT Office Visit Gastroenterology [facility] [address] [phone] Mary Silverman PA Gastroesophageal reflux disease with esophagitis without hemorrhage (Primary Dx); Esophageal stenosis 07/27/2025 12:00 PM EDT - 07/27/2025 1:15 PM EDT Surgery [facility] Main OR [address] [place] [phone] Ann Beckham MD CYSTOSCOPY, INJECTION BOTULINUM TOXIN [13673 (CPT )] 07/27/2025 11:06 AM EDT Anesthesia Event [facility] OR [address] [place] [phone] Edi So DO Chang, Daniel J, MD 07/27/2025 9:44 AM EDT - 07/27/2025 1:35 PM EDT Hospital Encounter [facility] Main OR [address] [place] [phone] Ann Beckham MD Discharge Disposition: Home or Self Care 07/25/2025 Telephone Urogynecology - [address] [phone] Ann Beckham MD 07/21/2025 1:30 PM EDT Consult Urogynecology - [address] [phone] Ann Beckham MD OAB (overactive bladder) (Primary Dx); Urge urinary incontinence 07/20/2025 Telephone Urogynecology [address] [place] [address] Ann Beckham MD 07/19/2025 Telephone Urogynecology [address] [place] [address] Sheree Boyd RN 07/14/2025 10:52 AM EDT - 07/14/2025 1:06 PM EDT [facility] [address] [place] [phone] Efren Boo MD Rash (Primary Dx); Generalized abdominal pain Discharge Disposition: Home or Self Care 07/13/2025 10:00 AM EDT Consult Adult Medicine [address] [phone] Sheba Wright MD Gastroesophageal reflux disease without esophagitis (Primary Dx); Fibromyalgia; Anxiety; Preop cardiovascular exam; Preop examination 07/13/2025 Telephone Urogynecology [address] [place] [phone] Ann Beckham MD 07/12/2025 [place] [facility] [phone] Disha Cantu MA 07/07/2025 8:30 AM EDT Office Visit Urogynecolog[address] [phone] Ann Beckham MD Recurrent UTI (Primary Dx); OAB (overactive bladder) 07/04/2025 7:35 AM EDT - 07/04/2025 11:20 AM EDT [facility] [address] [place] [phone] Acute pyelonephritis (Primary Dx); Avulsion of toenail, initial encounter Discharge Disposition: Home or Self Care 06/22/2025 Telephone Bariatric Surgery - [address] [place] [address] Marcos Curtis MD from Last 3 Months Immunizations Immunization Administration Dates Next Due Influenza Quadravalent, MDCK , 0.5ml, with preservative (Flucelvax) 6mo and older 08/28/2019 Influenza trivalent, 0.5mL ( Fluzone High-dose) 65yo and older 07/03/2025 Influenza trivalent, with pr eservative (Fluzone; Afluria) 6mo and older 10/08/2023,08/29/2022,07/05/2020 RSV, bivalent, protein subun it RSVpreF, 0.5mL, Preservative Free (Arexvy) 50yo and older 07/03/2025 Surgical History Surgery Date Site/Laterality Comments LAPAROSCOPIC GASTRIC BANDING PROCEDURE:LAPAROSCOPIC PLACEMENT GASTRIC RESTRICTIVE DEVICE OTHER SURGICAL HISTORY PROCEDURE: NV LAPS GASTRIC RESTRICTIVE PROCEDURE PLACE DEVICE HERNIA REPAIR 06/2017 PROCEDURE: HISTORICAL HERNIA REPAIR/DANIE BREAST LUMPECTOMY PROCEDURE: HISTORICAL BREAST LUMPECTOMY ESOPHAGOGASTRODUODENOSCOPY 05/16/2020 PROCEDURE: NV EGD TRANSORAL BIOPSY SINGLE/MULTIPLE; COMMENT: Dr. Lucila spicer. Biopsy shows mild esophageal inflammation without Santos's BARIATRIC SURGERY UPPER GASTROINTESTINAL ENDOSCOPY COLECTOMY OTHER SURGICAL HISTORY left hand and elbow surgery ROTATOR CUFF REPAIR 12/09/2024 Right Large Right rotator cuff repair large acromial and greater tuberosity bone spur debridement; Side to side as well as 2 anchor repair Medical History Medical History Date Comments Diabetes mellitus ([facility] V 24, [facility] V28) DX:Diabetes mellitus (HCC) Hyperlipemia DX:Hyperlipemia Amnesia DX:Amnesia Fibromyalgia 05/14/2018 DX:Fibromyalgia Diabetes mellitus, type 2 (C MS/HCC V24, CMS/HCC V28) 05/14/2018 DX:Diabetes mellitus, type 2 (HCC) Anxiety 05/14/2018 DX:Anxiety Arthritis 05/14/2018 DX:Arthritis Hx of laparoscopic gastric banding 05/14/2018 DX:Hx of laparoscopic gastric banding Breast cancer ([facility] V24, [facility] V28) DX:Breast cancer (HCC) GERD (gastroesophageal reflux disease) Depression Joint pain 2024 Diverticulitis colectomy Right shoulder pain Family History Medical History Relation Name Comments Depression Mother Relation Name Status Comments Father Mother Social History Tobacco Use Types Packs/Day Years Used Date Smoking Tobacco: Never Smokeless Tobacco: Never Tobacco Cessation:Counseling Given: Not Answered Alcohol Use Standard Drinks/Week Comments Yes 0 (1 standard drink = 0.6 oz pur e alcohol) weekends 1-3 Comments No Sex and Gender Information Value Date Recorded Sex Assigned at Female 11/29/2024 5:01 PM EST Legal Sex Female 7:05 AM EST Gender Identity Female 11/29/2024 5:01 PM EST Sexual Orientation Straight 11/30/2024 9: 04 AM EST Obstetrics History Last Filed Vital Signs Vital Sign Reading Time Taken Comments Blood Pressure 111/68 09/07/2025 2:35 PM EDT Pulse 75 09/07/2025 2:35 PM EDT Temperature 35.9 C (96.6 F) 09/07/2025 2:35 PM EDT Respiratory Rate 18 08/05/2025 11:28 AM EDT Oxygen Saturation 97% 09/07/2025 2:35 PM EDT Inhaled Oxygen Concentration - - Weight 77.6 kg (171 lb) 09/07/2025 2:35 PM EDT Height 162.6 cm (5' 4 ) 09/07/2025 2:35 PM EDT Body Mass Index 29.35 09/07/2025 2:35 PM EDT Plan of Treatment Upcoming Encounters Date Type Department Care Team (Late st Contact Info) Description 09/28/2025 8:45 AM EST Appointment [facility] Xray [address] [place] [phone] 10/10/2025 9:00 AM EST Consult Orthopedic Surgery [facility] 160 175 [facility] [address] [place] [phone] Paul Richter MD 175 [facility] [address] [place] [address] 11/24/2025 10:00 AM EST Office Visit Orthopedic Surgery [facility] 250 175 [facility] [address] [place] [phone] Davy Gardner DPM 175 [facility] [address] [place] [phone] 12/05/2025 2:30 PM EST Office Visit [facility] Hematology Oncology [address] [place] [phone] Melecio Posey MD [address] [place] [phone] 12/22/2025 10:45 AM EST Office Visit Bariatric Surgery - [place] 175 [facility] [address] [place] [phone] Marcos Curtis MD [address] [place] [phone] 04/17/2026 1:00 PM EDT Office Visit Gastroenterology - [address] [facility] [address] [facility] [address] [place] [phone] Mary Silverman PA [address] [facility] [address] [place] [address] Health Maintenance Due Date Last Done Comments Pneumococcal Vaccine: 50+ Years (1 of 2 - PCV) 01/21/1979 Zoster Vaccines (1 of 2) 01/21/1979 Cervical Cancer Screening: Pap Smear 01/21/1981 Osteoporosis Screening (Bone Density Screening) 10/19/2022 Social Influencers of Health Screening 10/19/2022 Depression Screening 11/10/2024 05/24/2024 Diabetes: Annual Retina Eye Exam 12/17/2024 12/17/2023 Diabetes: Annual Foot Exam 05/24/2025 05/24/2024 Diabetes: Annual Urine Albumin-Creatinine Ratio (uACR) 05/25/2025 05/25/2024 Diabetes: Blood Sugar Control Test (HGBA1C) 03/08/2026 09/07/2025, 11/30/2024, 05/25/2024, Additional history exists Falls Risk Assessment 05/31/2026 05/31/2025 Breast Cancer Screening 07/14/2026 07/14/2024 Diabetes: Annual GFR (Glomerular Filtration Rate) 07/14/2026 07/14/2025, 07/04/2025, 05/25/2025, Additional history exists Cholesterol Screening (Lipid Panel) 11/30/2029 11/30/2024, 06/25/2023 Colorectal Cancer Screening: Colonoscopy 10/17/2032 10/17/2022 DTaP,Tdap,and Td Vaccines (2 - Td or Tdap) 08/19/2034 08/19/2024 COVID-19 Vaccine Discontinued 10/01/2022, , 03/13/2021 Hepatitis C Screening Completed 05/25/2025, 023 Influenza Vaccine Completed 07/03/2025, , 10/08/2023, Additional history exists RSV Immunization Adult Patients Completed 07/03/2025 HIB Vaccines Aged Out No longer eligi ble based on patient's age to complete this topic HPV Vaccines Aged Out No longer eligi ble based on patient's age to complete this topic Hepatitis A Vaccines Aged Out No long er eligible based on patient's age to complete this topic Hepatitis B Vaccines Aged Out No long er eligible based on patient's age to complete this topic IPV Vaccines Aged Out No longer eligi ble based on patient's age to complete this topic MMR Vaccines Aged Out No longer eligi ble based on patient's age to complete this topic Meningococcal ACWY Vaccine Aged Out N o longer eligible based on patient's age to complete this topic Meningococcal B Vaccine Aged Out No l onger eligible based on patient's age to complete this topic RSV Immunization Patients Under 20 months Aged Out No longer eligible based on patient's age to complete this topic Varicella Vaccines Aged Out No longer eligible based on patient's age to complete this topic Goals Goal Patient Goal Type Associated Problems [...] Patient is independent and compliant with HEP Medical Devices Implanted Type Area Manager Solution Device Identifier Shelf Expiration Date Model / Serial / Lot Anchors Tendon 8 - Sn/A - [id number] Implanted:Qty : 1 on 12/09/2024 by Paul Richter MD at [facility] [employer]plants Sports Med Right: Shoulder [employer] - ENDOSCOPY [id number] 10/04/2027 2504-1 / N/A / [id number] [place] Bone Arthro Del Sys Advncd - Sn/A - [id number] Implanted:Qty : 1 on 12/09/2024 by Paul Richter MD at [facility] [employer] Implants Sports Med Right: Shoulder [employer] NEPHEW - ENDOSCOPY 08/02/2027 [id number] / N/A / [id number] Implant Bioinductive W/Arth Del Med - Sn/A - [id number] Implanted:Qty : 1 on 12/09/2024 by Paul Richter MD at [facility] [employer] Right: Shoulder [employer]OR[employer] NEPHEW - ENDOSCOPY [id number] 08/09/2027 [id number] / N/A / [id number] Heal[employer]il 5.5 Implanted:Qty : 2 on 12/09/2024 by Paul Richter MD at [facility] Right: Shoulder [employer] 06/14/2027 [id number] / N/A / [id number] Procedures Procedure Name Priority Date/Time Associated Diagnosis Comments NV ARTHROCENTESIS/ASPIRAT ION/INJECTION MAJOR JOINT/BURSA W/O U/S GUIDANCE Routine 09/21/2025 8:30 AM EST S/P right rotator cuff repair Bursitis of right shoulder Chronic right shoulder pain CBC WITH AUTO DIFFERENTIAL Routine 09/07/2025 3:16 PM EDT Bruises easily Fatigue, unspecified type PROTHROMBIN TIME WITH INR Routine 09/07/2025 3:16 PM EDT Bruises easily Fatigue, unspecified type CBC AND DIFFERENTIAL Routine 09/07/2025 3:16 PM EDT Bruises easily Fatigue, unspecified type HEPATIC FUNCTION PANEL Routine 3:16 PM EDT Bruises easily Fatigue, unspecified type IRON AND TIBC Routine 09/07/2025 3:16 PM EDT Bruises easily Fatigue, unspecified type FERRITIN Routine 09/07/2025 3:16 PM EDT Bruises easily Fatigue, unspecified type VITAMIN D 25 HYDROXY Routine 09/07/2025 3:16 PM EDT Bruises easily Fatigue, unspecified type VITAMIN B12 Routine 09/07/2025 3:16 PM EDT Bruises easily Fatigue, unspecified type FOLATE Routine 09/07/2025 3:16 PM EDT Bruises easily Fatigue, unspecified type THYROID STIMULATING HORMONE WITH REFLEX TO FREE T4 AND FREE T3 Routine 09/07/2025 3:16 PM EDT Bruises easily Fatigue, unspecified type Other chronic pain HEMOGLOBIN A1C Routine 09/07/2025 3:16 PM EDT Bruises easily Fatigue, unspecified type Other chronic pain Amnesia Forgetfulness POC URINE AUTO W/O MICRO Routine 09/01/2025 11:18 AM EDT OAB (overactive bladder) Urinary tract infection with hematuria, site unspecified URINALYSIS MICROSCOPIC ONLY Routine 09/01/2025 11:18 AM EDT OAB (overactive bladder) Urinary tract infection with hematuria, site unspecified URINALYSIS MICROSCOPIC ONLY Routine 09/01/2025 11:18 AM EDT OAB (overactive bladder) Urinary tract infection with hematuria, site unspecified CULTURE URINE Routine 09/01/2025 11:18 AM EDT OAB (overactive bladder) Urinary tract infection with hematuria, site unspecified CT LOWER EXTREMITY WO CONTRAST LEFT STAT 08/05/2025 1:39 PM EDT NV CYSTOSCOPY CHEMODENERVATION BLADDER 07/27/2025 11:07 AM EDT OAB (overactive bladder) Case Notes 30 degree cysto,100 units Botox Special Needs Skin to skin: 45min POCT GLUCOSE BLOOD Routine 07/27/2025 10:37 AM EDT CULTURE URINE Routine 07/19/2025 3:16 PM EDT OAB (overactive bladder) URINALYSIS WITH REFLEX MICROSCOPIC STAT 07/14/2025 12:00 PM EDT URINALYSIS WITH REFLEX MICROSCOPIC STAT 07/14/2025 12:00 PM EDT CBC WITH AUTO DIFFERENTIAL STAT 07/14/2025 11:16 AM EDT CBC AND DIFFERENTIAL STAT 07/14/2025 11:16 AM EDT LIPASE STAT 07/14/2025 11:16 AM EDT COMPREHENSIVE METABOLIC PANEL STAT 07/14/2025 11:16 AM EDT ECG 12-LEAD Routine 07/13/2025 1:31 PM EDT Preop examination LIPASE STAT 07/04/2025 9:49 AM EDT US ABDOMEN LIMITED STAT 07/04/2025 9: 48 AM EDT CBC WITH AUTO DIFFERENTIAL STAT 07/04/2025 7:52 AM EDT CBC AND DIFFERENTIAL STAT 07/04/2025 7:52 AM EDT COMPREHENSIVE METABOLIC PANEL STAT 07/04/2025 7:52 AM EDT PEREZ URINE CULTURE TUBE STAT 07/04/2025 7:43 AM EDT URINALYSIS WITH REFLEX MICROSCOPIC AND CULTURE STAT 07/04/2025 7:43 AM EDT URINALYSIS WITH REFLEX MICROSCOPIC AND CULTURE STAT 07/04/2025 7:43 AM EDT CULTURE URINE STAT 07/04/2025 7:43 AM EDT HEPATITIS C ANTIBODY Routine 05/25/2025 4:07 PM EDT Rash LIPID PANEL WITH REFLEX TO DIRECT LDL Routine 11/30/2024 8:34 AM EST Encounter for screening for cardiovascular disorders HM URINE ALBUMIN CREATININE RATIO Routine 05/25/2024 HM DEPRESSION SCREENING Routine 05/24/2024 HM DIABETES FOOT EXAM Routine 05/24/2024 DIABETES EYE EXAM Routine 12/17/2023 COLONOSCOPY Routine 10/17/2022 from Last 3 Months or Most Recently Relevant to Health Maintenance Results * NV ARTHROCENTESIS/ASPIRATION/INJECTION MAJOR JOINT/BURSA W/O U/S GUIDANCE (09/21/2025 [...] with patient: Verbal Pre-procedure timeout performed: yes Bonnie PÉREZ IN CLINIC/BEDSIDE ORDERABLES Final Result * Thyroid stimulating hormone with reflex to free t4 and free t3 (09/07/2025 3:16 PM EDT) [facility] TSH 1.57 0.40 - 4.00 mcIU/mL LAB CHEMISTRY METHOD 09/07/2025 10:00 PM EDT [facility] Blood Venous blood specimen / Unknown Venipuncture / Unknown 09/07/2025 3:16 PM EDT 09/07/2025 3:16 PM EDT us Rosana Vázquez RECYCLING COORDINATOR LAB BLOOD ORDERABLES Final R esult [facility] [address] [place] [address], [place] [phone] * (ABNORMAL) CBC auto differential (09/07/2025 3:16 PM EDT) Only the most recent of3 resultswithin the time period is included. [facility] WBC 6.3 4.8 - 10.8 K/mcL LAB HEMETOLOGY METHOD 09/07/2025 4:49 PM EDT [facility] RBC 4.20 3.80 - 4.80 M/mcL LAB HEMETOLOGY METHOD 09/07/2025 4:49 PM EDT [facility] Hemoglobin 12.8 11.5 - 16.0 g/dL LAB HEMETOLOGY METHOD 09/07/2025 4:49 PM EDT [facility] Hematocrit 38.1 35.0 - 47.0 % LAB HEMETOLOGY METHOD 09/07/2025 4:49 PM EDT [facility] MCV 90.9 79.0 - 98.0 FL LAB HEMETOLOGY METHOD 09/07/2025 4:49 PM EDT [facility] MCH 30.5 27.0 - 32.0 pcg LAB HEMETOLOGY METHOD 09/07/2025 4:49 PM EDT [facility] MCHC 33.6 32.0 - 37.0 g/dL LAB HEMETOLOGY METHOD 09/07/2025 4:49 PM EDT [facility] RDW 13.2 11.0 - 15.0 % LAB HEMETOLOGY METHOD 09/07/2025 4:[facility] Platelets 208 130 - 400 K/mcL LAB HEMETOLOGY METHOD 09/07/2025 4:49 PM [facility] MPV 11.8(H) 7.0 - 11.0 FL LAB HEMETOLOGY METHOD 09/07/2025 4:49 PM [facility] NRBC 0.0 <1.0 % LAB HEMETOLOGY METHOD 09/07/2025 4:49 PM [facility] NRBC Absolute 0.00 <0.10 K/mcL LAB HEMETOLOGY METHOD 09/07/2025 4:49 PM [facility] Neutrophils Relative 63.3 % LAB HEMETOLOGY METHOD 09/07/2025 4:49 PM [facility] Lymphocytes Relative 27.3 % LAB HEMETOLOGY METHOD 09/07/2025 4:49 PM [facility] Monocytes Relative 7.2 % LAB HEMETOLOGY METHOD 09/07/2025 4:49 PM [facility] Eosinophils Relative 1.4 % LAB HEMETOLOGY METHOD 09/07/2025 4:49 PM [facility] Basophils Relative 0.5 % LAB HEMETOLOGY METHOD 09/07/2025 4:49 PM [facility] Immature Granulocytes Relative 0.3 % LAB HEMETOLOGY METHOD 09/07/2025 4:49 PM [facility] Neutrophils Absolute 3.96 1.50 - 7.00 K/mcL LAB HEMETOLOGY METHOD 09/07/2025 4:49 PM EDT [facility] Lymphocytes Absolute 1.71 1.00 - 5.00 K/mcL LAB HEMETOLOGY METHOD 09/07/2025 4:49 PM EDT [facility] Monocytes Absolute 0.45 0.20 - 1.00 K/mcL LAB HEMETOLOGY METHOD 09/07/2025 4:49 PM EDT [facility] Eosinophils Absolute 0.09 0.00 - 0.50 [facility] LAB HEMETOLOGY METHOD 09/07/2025 4:49 PM EDT [facility] Basophils Absolute 0.03 0.00 - 0.20 K/mcL LAB HEMETOLOGY METHOD 09/07/2025 4:49 PM EDT [facility] Immature Granulocytes Absolute 0.02 0.00 - 0.03 K/mcL LAB HEMETOLOGY METHOD 09/07/2025 4:49 PM EDT [facility] Blood Venous blood specimen / Unknown Venipuncture / Unknown 09/07/2025 3:16 PM EDT 09/07/2025 3:16 PM EDT Rosana Vázquez RECYCLING COORDINATOR LAB BLOOD ORDERABLES Final R esult [facility] [address] [place] [address], * (ABNORMAL) Iron and TIBC (09/07/2025 3:16 PM EDT) Iron 43 40 - 150 mcg/dL LAB CHEMISTRY METHOD 09/07/2025 9:41 PM EDT [facility] TIBC 357 250 - 450 mcg/dL LAB CHEMISTRY METHOD 09/07/2025 9:41 PM EDT [facility] Iron Saturation 12(L) 15 - 50 % LAB CHEMISTRY METHOD 09/07/2025 9:41 PM EDT [facility] Blood Venous blood specimen / Unknown Venipuncture / Unknown 09/07/2025 3:16 PM EDT 09/07/2025 3:16 PM EDT Rosana Vázquez RECYCLING COORDINATOR LAB BLOOD ORDERABLES Final R esult [facility] [address] [place] [address], [place] [phone] * (ABNORMAL) Vitamin D 25 hydroxy (09/07/2025 3:16 PM EDT) [facility] Vit D, 25-Hydroxy 16.4(L) 30.0 - 80.0 ng/mL LAB CHEMISTRY METHOD 09/07/2025 10:00 PM EDT [facility] Blood Venous blood specimen / Unknown Venipuncture / Unknown 09/07/2025 3:16 PM EDT 09/07/2025 3:16 PM EDT Rosana Vázquez RECYCLING COORDINATOR LAB BLOOD ORDERABLES Final R esult Performing Organization Address City/[facility]/ZIP Co de Phone Number [facility] [address] [place] [address], [place] [phone] * Prothrombin time with INR (09/07/2025 3:16 PM EDT) [facility] Protime 11.0 10.6 - 13.9 sec LAB COAGULATION METHOD 09/07/2025 4:48 PM EDT [facility] INR 0.9 LAB COAGULATION METHOD 09/07/2025 4:48 PM EDT [facility] Blood Venous blood specimen / Unknown Venipuncture / Unknown 09/07/2025 3:16 PM EDT 09/07/2025 3:16 PM EDT Rosana Vázquez RECYCLING COORDINATOR LAB BLOOD ORDERABLES Final R esult [facility] [address] [place] [address], [place] [phone] * Hemoglobin A1c (09/07/2025 3:16 PM EDT) [facility] Hemoglobin A1C 5.8 <6.5 % LAB CHEMISTRY METHOD 09/07/2025 9:20 PM EDT [facility] Mean Bld Glu Estim. 120 mg/dL LAB CHEMISTRY METHOD 09/07/2025 9:20 PM EDT [facility] Blood Venous blood specimen / Unknown Venipuncture / Unknown 09/07/2025 3:16 PM EDT 09/07/2025 3:16 PM EDT Rosana Vázquez RECYCLING COORDINATOR LAB BLOOD ORDERABLES Final R esult Performing Organization Address City/[facility]/ZIP Co de Phone Number [facility] [address] [place] [address], [place] [phone] * Folate (09/07/2025 3:16 PM EDT) [facility] Folate 12.8 2.8 - 17.0 ng/ml LAB CHEMISTRY METHOD 09/07/2025 9:41 PM EDT [facility] Blood Venous blood specimen / Unknown Venipuncture / Unknown 09/07/2025 3:16 PM EDT 09/07/2025 3:16 PM EDT Rosana Vázquez RECYCLING COORDINATOR LAB BLOOD ORDERABLES Final R esult [facility] [address] [place] [address], [place] [phone] * Ferritin (09/07/2025 3:16 PM EDT) [facility] Ferritin 47 8 - 252 ng/mL LAB CHEMISTRY METHOD 09/07/2025 9:41 PM EDT [facility] Blood Venous blood specimen / Unknown Venipuncture / Unknown 09/07/2025 3:16 PM EDT 09/07/2025 3:16 PM EDT Rosana Vázquez RECYCLING COORDINATOR LAB BLOOD ORDERABLES Final R esult [facility] [address] [place] [address], [place] [phone] * Vitamin B12 (09/07/2025 3:16 PM EDT) [facility] Vitamin B-12 320 250 - 900 pcg/mL LAB CHEMISTRY METHOD 09/07/2025 9:41 PM EDT [facility] Blood Venous blood specimen / Unknown Venipuncture / Unknown 09/07/2025 3:16 PM EDT 09/07/2025 3:16 PM EDT Rosana Vázquez RECYCLING COORDINATOR LAB BLOOD ORDERABLES Final R esult Performing Organization Address City/[facility]/ZIP Co de Phone Number [facility] [address] [place] [address], [place] [phone] * Hepatic function panel (09/07/2025 3:16 PM EDT) [facility] Total Protein 6.9 6.0 - 8.0 g/dL LAB CHEMISTRY METHOD 09/07/2025 9:41 PM EDT [facility] Albumin 3.9 3.2 - 5.0 g/dL LAB CHEMISTRY METHOD 09/07/2025 9:41 PM EDT [facility] Total Bilirubin 0.2 0.0 - 1.4 mg/dL LAB CHEMISTRY METHOD 09/07/2025 9:41 PM EDT [facility] Bilirubin, Direct <0.1 0.0 - 0.3 mg/dL LAB CHEMISTRY METHOD 09/07/2025 9:41 PM EDT [facility] Bilirubin, Indirect LAB CHEMISTRY METHOD 09/07/2025 9:41 PM EDT [facility] Comment:Unable to calculate Indirect Bilirubin. ALT (SGPT) 19 10 - 60 unit/L LAB CHEMISTRY METHOD 09/07/2025 9:41 PM EDT [facility] AST (SGOT) 10 10 - 42 unit/L LAB CHEMISTRY METHOD 09/07/2025 9:41 PM EDT [facility] Alkaline Phosphatase 77 42 - 121 unit/L LAB CHEMISTRY METHOD 09/07/2025 9:41 PM EDT [facility] Blood Venous blood specimen / Unknown Venipuncture / Unknown 09/07/2025 3:16 PM EDT 09/07/2025 3:16 PM EDT us Rosana Vázquez RECYCLING COORDINATOR LAB BLOOD ORDERABLES Final R esult [facility] [address] [place] [address], * (ABNORMAL) Urinalysis microscopic only (09/01/2025 11:18 AM EDT) RBC, Urine 1.0 0 - 4 /HPF LAB URINALYSIS - AUTOMATED METHOD 09/01/2025 7:03 PM [facility] WBC, Urine 97.1(H) 0 - 4 /HPF LAB URINALYSIS - AUTOMATED METHOD 09/01/2025 7:03 PM [facility] Squamous Epithelial, Urine 5 0 - 60 /LPF LAB URINALYSIS - AUTOMATED METHOD 09/01/2025 7:03 PM [facility] Bacteria, Urine Many(A) Negative /HPF LAB URINALYSIS - AUTOMATED METHOD 09/01/2025 7:03 PM [facility] Hyaline Casts, Urine 2.0 0 - 3 /LPF LAB URINALYSIS - AUTOMATED METHOD 09/01/2025 7:03 PM [facility] Urine Urinary bladder structure / Unknown Non-blood Collection / Unknown 09/01/2025 11:18 AM EDT 09/01/2025 11:18 AM EDT us Ann Beckham MD LAB URINE ORDERABLES Final Resu lt [facility] [address] [place] [address], [place] [phone] * (ABNORMAL) POC Urine Auto W/O Micro (09/01/2025 11:18 AM EDT) Glucose UA POC Negative Negative, Trace mg/dL Bilirubin UA POC Negative Negative Ketones UA POC Negative Negative Specific [place] UA POC 1.010 Blood UA POC Trace - Intact(A) Negative PH UA POC 5.5 Protein UA POC Negative Negative mg/dL Urobilinogen UA POC 0.2 E.U./dL 0.2 E.U./dL, 1.0 E.U./dL, 8 , Unable to interpret due to interfering substances mg/dL Nitrite UA POC Positive(A) Negative Leukocytes UA POC Small(A) Negative Urine Urine specimen obtained by clean catch procedure / Unknown 09/01/2025 11:18 AM EDT Ann Beckham MD POINT OF CARE TEST ENTER/EDIT O RDERABLES Final Result * (ABNORMAL) Culture urine (09/01/2025 11:18 AM EDT) Only the most recent of3 resultswithin the time period is included. Culture, Urine >=100,000 CFU/mL Escherichia coli(A) JC 09/03/2025 7:58 AM EDT [facility] Comment: This is an edited result. Previous organism was Gram negative bacilli on 09/02/2025 at 0807 EDT. Urine Urinary bladder structure / Unknown Non-blood Collection / Unknown 09/01/2025 11:18 AM EDT 09/01/2025 11:18 AM EDT Narrative Organism Antibiotic Method Susceptibility Escherichia coli Amoxicillin/Clavulanate JC <=2 ug/ml: Susceptible Escherichia coli Ampicillin/Sulbactam JC 4 ug/ml: Susceptible Escherichia coli Piperacillin/Tazobactam JC <=4 ug/ml: Susceptible Escherichia coli Cefazolin (Urine) JC <=1 ug/ml: Susceptible Escherichia coli Cefoxitin JC <=4 ug/ml: Susceptible Escherichia coli Ceftazidime JC <=0.5 ug/ml: Susceptible Escherichia coli Ceftriaxone JC <=0.25 ug/ml: Susceptible Escherichia coli Cefepime JC <=0.12 ug/ml: Susceptible Escherichia coli Meropenem JC <=0.25 ug/ml: Susceptible Escherichia coli Amikacin JC 2 ug/ml: Susceptible Escherichia coli Gentamicin JC <=1 ug/ml: Susceptible Escherichia coli Ciprofloxacin JC <=0.06 ug/ml: Susceptible Escherichia coli Levofloxacin JC <=0.12 ug/ml: Susceptible Escherichia coli Nitrofurantoin JC 64 ug/ml: Intermediate Escherichia coli Trimethoprim/Sulfamethoxazole JC <=20 ug/ml: Susceptible us Ann Beckham MD LAB MICROBIOLOGY - GENERAL ORDElisha DOWNEY Final Result [facility] ([facility]) [facility] [address] [place] [address], * CT Lower Extremity wo Contrast Left (08/05/2025 1:39 PM EDT) Anatomical Region Laterality Modality Lower Extremities Left Computed Tomog prudence 08/05/2025 2:34 PM EDT Impressions 08/05/2025 2:35 PM EDT Soft tissue edema without drainable fluid collection or abscess. -------- FINAL REPORT -------- Dictated By: Max Bass Dictated Date: 08/05/2025 14:34 ET Assigned Physician: Max Bass Reviewed and Electronically Signed By: Max Bass Signed Date: 08/05/2025 14:35 ET Workstation ID: [id number] Transcribed By: Self Edit Transcribed Date: 08/05/2025 14:34 ET Narrative 08/05/2025 2:35 PM EDT PROCEDURE: CT LOWER EXTREMITY WO CONTRAST LEFT INDICATION: great toe nail removed a month ago, had maggots, pt concerned for more inside, ongoing pain in bone, pus around nail, eval foreign body, infection TECHNIQUE: Dedicated CT examination was performed of the left lower extremity with multiplanar reformats. The examination was performed utilizing dose reduction techniques. Total DLP: 196 mGy/cm COMPARISON: No priors available. FINDINGS: There is degenerative changes throughout the foot. There is no acute fracture or dislocation. No evidence for osteomyelitis. There is soft tissue edema particularly around the medial forefoot without drainable fluid collection or abscess. There is no radiopaque foreign body in the soft tissues. Procedure Note Max Bass MD - 08/05/2025 PROCEDURE: CT LOWER EXTREMITY WO CONTRAST LEFT INDICATION: great toe nail removed a month ago, had maggots, pt concernedfor more inside, ongoing pain in bone, pus around nail, eval foreign body,infection TECHNIQUE: Dedicated CT examination was performed of the left lowerextremity with multiplanar reformats. The examination was performedutilizing dose reduction techniques. Total DLP: 196 mGy/cm COMPARISON: No priors available. FINDINGS: There is degenerative changes throughout the foot. There is noacute fracture or dislocation. No evidence for osteomyelitis. There issoft tissue edema particularly around the medial forefoot withoutdrainable fluid collection or abscess. There is no radiopaque foreignbody in the soft tissues. IMPRESSION: Soft tissue edema without drainable fluid collection or abscess. -------- FINAL REPORT -------- Dictated By: Max Bass Dictated Date: 08/05/2025 14:34 ET Assigned Physician: Max Bass Reviewed and Electronically Signed By: Max Bass Signed Date: 08/05/2025 14:35 ET Workstation ID: [id number] Transcribed By: Self Edit Transcribed Date: 08/05/2025 14:34 ET Cynthia Silverio MD [facility] PROCEDURES Final Result * POCT Glucose, blood (07/27/2025 10:37 AM EDT) Glucose POCT 92 70 - 100 mg/dL 07/27/2025 10:38 AM EDT [facility] Blood Capillary blood specimen / Unknown 07/27/2025 10:37 AM EDT 07/27/2025 10:39 AM EDT us Ann Beckham MD LAB POINT OF CARE TE ST DOCKED DEVICE UNSOLICITED RESULTS Final Result [facility] [address] [place] [address], [place] [phone] * (ABNORMAL) Urinalysis with reflex microscopic (07/14/2025 12:00 PM EDT) Specific [place] Urine 1.014 1.003 - 1.030 LAB URINALYSIS - AUTOMATED METHOD 07/14/2025 12:12 PM [facility] pH, Urine 8.0 5.0 - 8.0 pH LAB URINALYSIS - AUTOMATED METHOD 07/14/2025 12:12 PM [facility] Leukocytes, Urine Moderate(A) Negative LAB URINALYSIS - AUTOMATED METHOD 07/14/2025 12:12 PM [facility] Nitrite, Urine Negative Negative LAB URINALYSIS - AUTOMATED METHOD 07/14/2025 12:12 PM [facility] Protein, Urine Negative <=Trace mg/dL LAB URINALYSIS - AUTOMATED METHOD 07/14/2025 12:12 PM [facility] Glucose, Urine Negative Negative mg/dL LAB URINALYSIS - AUTOMATED METHOD 07/14/2025 12:12 PM [facility] Ketones, Urine Negative Negative mg/dL LAB URINALYSIS - AUTOMATED METHOD 07/14/2025 12:12 PM [facility] Urobilinogen , Urine 1.0 0.2 - 1.0 mg/dL LAB URINALYSIS - AUTOMATED METHOD 07/14/2025 12:12 PM [facility] Bilirubin, Urine Negative Negative LAB URINALYSIS - AUTOMATED METHOD 07/14/2025 12:12 PM EDT [facility] Blood, Urine Negative Negative LAB URINALYSIS - AUTOMATED METHOD 07/14/2025 12:12 PM EDT [facility] RBC, Urine 1.1 0 - 4 /HPF LAB URINALYSIS - AUTOMATED METHOD 07/14/2025 12:12 PM [facility] WBC, Urine 9.1(H) 0 - 4 /HPF LAB URINALYSIS - AUTOMATED METHOD 07/14/2025 12:12 PM EDT [facility] Squamous Epithelial, Urine 47 0 - 60 /LPF LAB URINALYSIS - AUTOMATED METHOD 07/14/2025 12:12 PM EDT [facility] Bacteria, Urine Negative Negative /HPF LAB URINALYSIS - AUTOMATED METHOD 07/14/2025 12:12 PM [facility] Hyaline Casts, Urine 0.8 0 - 3 /LPF LAB URINALYSIS - AUTOMATED METHOD 07/14/2025 12:12 PM [facility] Urine Urine specimen obtained by clean catch procedure / Unknown Non-blood Collection / Unknown 07/14/2025 12:00 PM EDT 07/14/2025 12:03 PM EDT us Efren Boo MD LAB URINE ORDERABLES Final Resu lt [facility] [address] [place] [address], * Lipase (07/14/2025 11:16 AM EDT) Only the most recent of2 resultswithin the time period is included. Lipase 56 13 - 75 unit/L LAB CHEMISTRY METHOD 07/14/2025 12:04 PM EDT [facility] Blood Venous blood specimen / Unknown Venipuncture / Unknown 07/14/2025 11:16 AM EDT 07/14/2025 11:25 AM EDT us Efren Boo MD LAB BLOOD ORDERABLES Final Resu lt [facility] [address] [place] [address], [place] [phone] * (ABNORMAL) Comprehensive Metabolic Panel (CMP) (07/14/2025 11:16 AM EDT) Only the most recent of2 resultswithin the time period is included. Pathologist [facility] Sodium 143 133 - 145 mmol/L LAB CHEMISTRY METHOD 07/14/2025 12:04 PM [facility] Potassium 4.5 3.5 - 5.5 mmol/L LAB CHEMISTRY METHOD 07/14/2025 12:04 PM [facility] Comment:Hemolysis present Chloride 111(H) 96 - 110 mmol/L LAB CHEMISTRY METHOD 07/14/2025 12:04 PM [facility] CO2 29 21 - 32 mmol/L LAB CHEMISTRY METHOD 07/14/2025 12:04 PM [facility] Anion Gap 3 3 - 11 LAB CHEMISTRY METHOD 07/14/2025 12:04 PM [facility] Glucose 104(H) 70 - 100 mg/dL LAB CHEMISTRY METHOD 07/14/2025 12:04 PM [facility] BUN 17 5 - 25 mg/dL LAB CHEMISTRY METHOD 07/14/2025 12:04 PM [facility] Creatinine 0.82 0.50 - 1.10 mg/dL LAB CHEMISTRY METHOD 07/14/2025 12:04 PM [facility] eGFR 79 >=60 mL/min/1. 73m2 LAB CHEMISTRY METHOD 07/14/2025 12:04 PM [facility] Comment:Calculation based on the Chronic Kidney Disease Epidemiology Collaboration (CKD-EPI) equation refit without adjustment for race. BUN/Creatinine Ratio 20.7 LAB CHEMISTRY METHOD 07/14/2025 12:04 PM [facility] Calcium 8.8 8.5 - 10.5 mg/dL LAB CHEMISTRY METHOD 07/14/2025 12:04 PM [facility] AST (SGOT) 16 10 - 42 unit/L LAB CHEMISTRY METHOD 07/14/2025 12:04 PM [facility] ALT (SGPT) 18 10 - 60 unit/L LAB CHEMISTRY METHOD 07/14/2025 12:04 PM [facility] Alkaline Phosphatase 65 42 - 121 unit/L LAB CHEMISTRY METHOD 07/14/2025 12:04 PM [facility] Total Protein 6.5 6.0 - 8.0 g/dL LAB CHEMISTRY METHOD 07/14/2025 12:04 PM [facility] Albumin 3.4 3.2 - 5.0 g/dL LAB CHEMISTRY METHOD 07/14/2025 12:04 PM [facility] Total Bilirubin 0.3 0.0 - 1.4 mg/dL LAB CHEMISTRY METHOD 07/14/2025 12:04 PM [facility] Blood Venous blood specimen / Unknown Venipuncture / Unknown 07/14/2025 11:16 AM EDT 07/14/2025 11:25 AM EDT us Efren Boo MD LAB BLOOD ORDERABLES Final Resu lt [facility] [address] [place] [address], [place] [phone] * ECG 12 lead (07/13/2025 1:31 PM EDT) Narrative Sheba Wright MD - 07/13/2025 1:31 PM EDT EKG in my office showed a normal sinus rhythm and nonspecific ST-T changes. Formal reading by cardiology still pending us Sheba Wright MD ECG ORDERABLES Final Result * US Abdomen Limited (07/04/2025 9:48 AM EDT) Anatomical Region Laterality Modality Body Ultrasound 07/04/2025 9:54 AM EDT Impressions 07/04/2025 10:02 AM EDT No acute findings. Sonographic Haque sign was negative, but analgesics were administered prior to this exam. -------- FINAL REPORT -------- Dictated By: Narendra Bess Dictated Date: 07/04/2025 09:54 ET Assigned Physician: Narendra Bess Reviewed and Electronically Signed By: Narendra Bess Signed Date: 07/04/2025 10:02 ET Workstation ID: [id number] Transcribed By: Self Edit Transcribed Date: 07/04/2025 09:56 ET Narrative 07/04/2025 10:02 AM EDT PROCEDURE: Right upper quadrant ultrasound. HISTORY: Abd pain, unspecified positive Haque sign. COMPARISON: 01/27/2025. TECHNIQUE: Grayscale, color Doppler, and spectral Doppler ultrasound evaluation of the right upper quadrant of the abdomen. FINDINGS: LIVER: Normal echotexture. No focal lesion. Normal flow in the main portal vein. BILIARY: Normal gallbladder. Normal caliber biliary tree with no ductal filling defect. Negative sonographic Haque sign; however, analgesics were administered prior to this exam. PANCREAS: Visualized portions are normal. RIGHT KIDNEY: Normal size and echotexture. No hydronephrosis. 2.7 cm interpolar cortical cyst. Procedure Note Narendra Bess MD - 07/04/2025 PROCEDURE: Right upper quadrant ultrasound. HISTORY: Abd pain, unspecified positive Haque sign. COMPARISON: 01/27/2025. TECHNIQUE: Grayscale, color Doppler, and spectral Doppler ultrasoundevaluation of the right upper quadrant of the abdomen. FINDINGS: LIVER: Normal echotexture. No focal lesion. Normal flow in the mainportal vein. BILIARY: Normal gallbladder. Normal caliber biliary tree with no ductalfilling defect. Negative sonographic Haque sign; however, analgesicswere administered prior to this exam. PANCREAS: Visualized portions are normal. RIGHT KIDNEY: Normal size and echotexture. No hydronephrosis. 2.7 cminterpolar cortical cyst. IMPRESSION: No acute findings. Sonographic Haque sign was negative, but analgesics were administeredprior to this exam. -------- FINAL REPORT -------- Dictated By: Narendra Bess Dictated Date: 07/04/2025 09:54 ET Assigned Physician: Narendra Bess Reviewed and Electronically Signed By: Narendra Bess Signed Date: 07/04/2025 10:02 ET Workstation ID: [id number] Transcribed By: Self Edit Transcribed Date: 07/04/2025 09:56 ET us Reddy PÉREZ IMG US PROCEDURES Final Res ult * (ABNORMAL) Urinalysis with reflex microscopic and culture (07/04/2025 7:43 AM EDT) Specific [place] Urine 1.014 1.003 - 1.030 LAB URINALYSIS - AUTOMATED METHOD 07/04/2025 8:23 AM [facility] pH, Urine 6.0 5.0 - 8.0 pH LAB URINALYSIS - AUTOMATED METHOD 07/04/2025 8:23 AM [facility] Leukocytes, Urine Small(A) Negative LAB URINALYSIS - AUTOMATED METHOD 07/04/2025 8:23 AM [facility] Nitrite, Urine Negative Negative LAB URINALYSIS - AUTOMATED METHOD 07/04/2025 8:23 AM [facility] Protein, Urine Negative <=Trace mg/dL LAB URINALYSIS - AUTOMATED METHOD 07/04/2025 8:23 AM [facility] Glucose, Urine Negative Negative mg/dL LAB URINALYSIS - AUTOMATED METHOD 07/04/2025 8:23 AM [facility] Ketones, Urine Negative Negative mg/dL LAB URINALYSIS - AUTOMATED METHOD 07/04/2025 8:23 AM [facility] Urobilinogen , Urine 1.0 0.2 - 1.0 mg/dL LAB URINALYSIS - AUTOMATED METHOD 07/04/2025 8:23 AM [facility] Bilirubin, Urine Negative Negative LAB URINALYSIS - AUTOMATED METHOD 07/04/2025 8:23 AM [facility] Blood, Urine Negative Negative LAB URINALYSIS - AUTOMATED METHOD 07/04/2025 8:23 AM [facility] RBC, Urine 3.6 0 - 4 /HPF LAB URINALYSIS - AUTOMATED METHOD 07/04/2025 8:23 AM [facility] WBC, Urine 32.7(H) 0 - 4 /HPF LAB URINALYSIS - AUTOMATED METHOD 07/04/2025 8:23 AM [facility] Squamous Epithelial, Urine 13 0 - 60 /LPF LAB URINALYSIS - AUTOMATED METHOD 07/04/2025 8:23 AM [facility] Bacteria, Urine Moderate(A) Negative /HPF LAB URINALYSIS - AUTOMATED METHOD 07/04/2025 8:23 AM [facility] Hyaline Casts, Urine 0.4 0 - 3 /LPF LAB URINALYSIS - AUTOMATED METHOD 07/04/2025 8:23 AM [facility] Urine Urine specimen obtained by clean catch procedure / Unknown Non-blood Collection / Unknown 07/04/2025 7:43 AM EDT 07/04/2025 8:11 AM EDT us Reddy PÉREZ LAB URINE ORDERABLES Final Result [facility] [address] [place] [address], * Perez urine culture tube (07/04/2025 7:43 AM EDT) Extra Tube Hold for add-ons. 07/04/2025 10:01 AM T [facility] Comment:Auto resulted. Urine Urine specimen obtained by clean catch procedure / Unknown Non-blood Collection / Unknown 07/04/2025 7:43 AM EDT 07/04/2025 8:11 AM EDT Reddy PÉREZ LAB URINE ORDERABLES Final Result Performing Organization Address [facility]/ZIP Co de Phone Number [facility] [address] [place] [address], [place] [phone] * Hepatitis C antibody (05/25/2025 4:07 PM EDT) [facility] Hepatitis C Antibody Negative Negative LAB CHEMISTRY METHOD 05/25/2025 8:31 PM EDT [facility] Blood Venous blood specimen / Unknown Venipuncture / Unknown 05/25/2025 4:07 PM EDT 05/25/2025 4:07 PM EDT Angel PÉREZ LAB BLOOD ORDERABLES Fin al Result Performing Organization Address [facility]/ZIP Co de Phone Number [facility] [address] [place] [address], [place] [phone] * (ABNORMAL) Lipid panel with reflex to direct LDL (11/30/2024 8:34 AM EST) [facility] Cholesterol 200 0 - 200 mg/dL LAB CHEMISTRY METHOD 11/30/2024 10:20 AM EST [facility] Triglycerides 126 0 - 150 mg/dL LAB CHEMISTRY METHOD 11/30/2024 10:20 AM EST [facility] HDL 65 >=40 mg/dL LAB CHEMISTRY METHOD 11/30/2024 10:20 AM EST [facility] LDL Calculated 110(H) 0 - 100 mg/dL LAB CHEMISTRY METHOD 11/30/2024 10:20 AM EST [facility] VLDL Cholesterol John 25.2 mg/dL LAB CHEMISTRY METHOD 11/30/2024 10:20 AM EST [facility] Non HDL Chol. (LDL+VLDL) 135 <145 mg/dL LAB CHEMISTRY METHOD 11/30/2024 10:20 AM EST [facility] Chol/HDL Ratio 3.1 0.0 - 4.4 LAB CHEMISTRY METHOD 11/30/2024 10:20 AM EST [facility] Blood Venous blood specimen / Unknown Venipuncture / Unknown 11/30/2024 8:34 AM EST 11/30/2024 8:34 AM EST Rosana Vázquez RECYCLING COORDINATOR LAB BLOOD ORDERABLES Final R esult [facility] [address] [place] [address], * Urine Albumin Creatinine Ratio (05/25/2024) [facility] Urine Albumin Creatinine Ratio abstracted Result [facility] Provider HEALTH MAINTENANCE Final Result * Depression Screening (05/24/2024) [facility] Depression Screening abstracted Result [facility] Provider HEALTH MAINTENANCE Final Result * Diabetes Foot Exam (05/24/2024) [facility] Diabetes: Annual Foot Exam abstracted Result [facility] Provider HEALTH MAINTENANCE Final Result * Diabetes Eye Exam (12/17/2023) [facility] Diabetes: Annual Retina Eye Exam abstracted Result [facility] Provider HEALTH MAINTENANCE Final Result * Colonoscopy (10/17/2022) [facility] Colonoscopy no interpretation , abstracted Anatomical Region Laterality Modality Other Result [facility] Provider HEALTH MAINTENANCE Final Result from Last 3 Months or Most Recently Relevant to Health Maintenance Insurance MEDICAID - [place] Advance Directives Documents on File Type Date Recorded 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 Do not modify or discontinue any currently active code status orders. * Full Code - Default Date Activated Date Inactivated Comments 12/09/2024 9:22 AM 12/09/2024 8:35 PM This is orde r is used when code status has not been discussed with the patient, or code status is otherwise unknown/unconfirmed To update the patient's code status, place a code status order. Do not modify or discontinue any currently active code status orders. Care Teams Supervisor Particleboard Relationship Specialty Start Date End Date Sheba Wright MD [address] [place] [address] PCP - General Internal Medicine 08/22/21
--- OUTSIDE RECORDS SUMMARY | 2025-09-22 12:15 | XMS_ITS | Clinical Summary ---
Author Organization [employer] Address [address] [place] [address] Care Team Providers Care Black Topper Name Role Phone Unavailable Primary Care Provider Unavailabl e Allergies No known active allergies Medications Ventolin HFA 108 (90 Base) MCG/ACT inhaler 01/28/2024 Act deb carBAMazepine (TEGretol) 200 MG tablet 11/26/2023 Active cetirizine (ZyrTEC) 10 MG tablet Take 10 mg by mouth Once per day. Active cholecalciferol VITAMIN D (Vitamin D-3) 50 MCG (1999 UT) tablet 07/22/2024 Active divalproex (Depakote ER) 500 MG 24 hr tablet 06/28/2024 Active donepezil (Aricept) 10 MG tablet Take 10 mg by mouth at bedtime. Active DULoxetine (Cymbalta) [address] capsule Take 60 mg by mouth Once per day. Active lansoprazole (Prevacid) [address] capsule Take 30 mg by mouth 2 times daily. Active meloxicam (Mobic) 15 MG tablet 05/24/2024 Active memantine (Namenda) 10 MG tablet Take 10 mg by mouth Once per day. Active Myrbetriq 25 MG 24 hr tablet 12/11/2023 Active mirtazapine (Remeron) 7.5 MG tablet 05/26/2024 Active omeprazole (PriLOSEC) [address] capsule 07/23/2024 Active SUMAtriptan (Imitrex) 25 MG tablet 07/12/2024 Active zolpidem (Ambien) 10 MG tablet Take 10 mg by mouth at bedtime. Active Social History Tobacco Use Types Packs/Day Years Used Date Smoking Tobacco: Never Passive Smoke Exposure: Never Smokeless Tobacco: Never Tobacco Cessation:Counseling Given: Not Answered Comments Unknown Sex and Gender Information Value Date Recorded Sex Assigned at Female 03/01/2024 2:24 PM EDT Legal Sex Female 2:21 PM EDT Gender Identity Female 03/01/2024 2:24 PM EDT Sexual Orientation Straight 03/01/2024 2: 24 PM EDT Last Filed Vital Signs Vital Sign Reading Time Taken Comments Blood Pressure 128/66 07/28/2024 1:58 PM EDT Pulse 62 07/28/2024 1:58 PM EDT Temperature - - Respiratory Rate - - Oxygen Saturation - - Inhaled Oxygen Concentration - - Weight - - Height - - Body Mass Index - - Plan of Treatment Health Maintenance Due Date Last Done Comments CT Colonography 1960 Colonoscopy 1960 Colorectal Cancer Screening 1960 Dental Oral Exam 1960 Dental Prophylaxis 1960 Dental X-Ray: Bitewings 1960 Dental X-Ray: Full Mouth 1960 Depression Screening 1960 FIT DNA/Cologuard 1960 FIT 1960 FOBT 1960 Lipid Panel 1960 SDOH Screening 1960 Sigmoidoscopy 1960 Alcohol/Substance Use Screening 1972 Hepatitis C Screening 01/21/1978 DTaP/Tdap/Td Vaccines (1 - Tdap) 01/21/1979 Pap Smear 01/21/1981 Cervical Cancer Screening 01/21/1990 HPV/Cotest 01/21/1990 Pneumococcal Vaccine: 50+ Years (1 of 1 - PCV) 01/21/2010 Zoster Vaccines (1 of 2) 01/21/2010 COVID-19 Vaccine (1 - 2024- season) 2025 Influenza Vaccine (#1) 2025 3, 08/29/2022, 07/05/2020, Additional history exists Tobacco Screening 07/28/2025 07/28/2024 RSV Patients and Patients Aged 60 years or older (1 - 1-dose 75+ series) 01/21/2035 HIB Vaccines Aged Out No longer eligi [...] patient's age to complete this topic Meningococcal Vaccine Aged Out No angela sonny eligible based on patient's age to complete this topic RSV under 20 months Aged Out No longe r eligible based on patient's age to complete this topic Rotavirus Vaccines Aged Out No longer eligible based on patient's age to complete this topic Insurance [facility] MEDICAID STAND ADULT
--- OUTSIDE RECORDS SUMMARY | 2025-09-22 12:15 | XMS_ITS | Clinical Summary ---
Author Organization [facility] Address [address] [place] [address] Care Team Providers Care Residential Field Manager Name Role Phone Unavailable Primary Care Provider Unavailabl e Social History Tobacco Use Types Packs/Day Years Used Date Smoking Tobacco: Never Assessed Sex and Gender Information Value Date Recorded Sex Assigned at Not on file Gender Identity Not on file Sexual Orientation Not on file Job Start Date Occupation Industry Not on file Not on file Not on file Last Filed Vital Signs Vital Sign Reading Time Taken Comments Blood Pressure 130/82 03/25/2024 11:16 AM EDT Pulse 63 03/25/2024 11:16 AM EDT Temperature 36.5 C (97.7 F) 03/25/2024 11:16 AM EDT Respiratory Rate - - Oxygen Saturation 96% 03/25/2024 11:16 AM EDT Inhaled Oxygen Concentration - - Weight 68 kg (150 lb) 03/25/2024 11:16 AM EDT Height 162.6 cm (5' 4 ) 03/25/2024 11:16 AM EDT Body Mass Index 25.75 03/25/2024 11:16 AM EDT Plan of Treatment Health Maintenance Due Date Last Done Comments Hepatitis C Screening 1960 COVID-19 Vaccine (#1) 1960 Depression Screening 1972 Preventative Health Evaluation 01/21/1978 DTap / Tdap / Td (1 - Tdap) 01/21/1979 Cervical Cancer Screening (Pap Smear) 01/21/1981 Colon Cancer Screening (Colonoscopy) 01/21/2005 Breast Cancer Screening (Mammogram) 01/21/2010 Shingrix-Zoster Vaccine (1 o f 2) 01/21/2010 Fall Risk Assessment 01/21/2025 Osteoporosis Screening (DEXA Scan) 01/21/2025 Pneumococcal Vaccine (1 of 1 - PCV) 01/21/2025 Influenza Vaccine (#1) 2025 0, 08/28/2019 RSV Adult > 60+ Yrs or (1 - 1-dose 75+ series) 01/21/2035 Hepatitis B Vaccines Aged Out No long er eligible based on patient's age to complete this topic Pneumococcal Vaccine Aged Out No long er eligible based on patient's age to complete this topic RSV Ped < 20 months Aged Out No longe r eligible based on patient's age to complete this topic
--- OUTSIDE RECORDS SUMMARY | 2025-09-22 12:15 | XMS_ITS ---
Author Organization [facility] Address [address] [place] [address] Phone Care Team Providers Care Tacking Machine Operator Name Role Phone Sheba Wright MD Primary Care Provider [phone] Active Problems Problem Noted Date Diagnosed Date [...] of right upper arm 4 Breast cancer (CMS/HCC V24, CMS/HCC V28) 024 Overview (08/10/2024): S/p lumpectomy & [...] for incontinency every 6 months by your account executive. Amnesia 06/14/2021 Overview (08/10/2024): Follows with neurology Diverticulitis 06/14/2021 Anxiety 05/14/2018 Diabetes mellitus, type 2 ([facility] V24, [facility] V28) 05/14/2018 Assessment & Plan [...] reflex to direct LDL; Future Fibromyalgia 05/14/2018 Current Treatment and Therapy Plans No current plan information found. Past Treatment and Therapy Plans No past plan information found. Lifetime Dose Tracking * Chemical Lifetime Dose Automatic Entry Manual Entr y Fluoro Time 1.8 minutes 1.8 minutes 0 minutes Air Kerma 61.91 mGy 61.91 mGy 0 mGy Dose Area Product 10.09 mGy-cm2 10.09 mGy-cm2 0 mGy-cm 2
--- OUTSIDE RECORDS SUMMARY | 2025-09-22 12:15 | XMS_ITS | Clinical Summary ---
Author Organization [facility] Address [address] [facility] [address] [place] [address] Phone Care Team Providers Care Outsole Caser Name Role Phone Gurpreet Sadiesanta Matos APRN Primary Care Provider Allergies No known active allergies Medications lansoprazole (PREVACID) [address] capsule Take 30 mg by mouth in the morning and 30 mg in the evening. Do not crush or chew.. Active letrozole (FEMARA) 2.5 MG chemo tablet Take 2.5 mg by mouth 1 (one) time each day Take with or without food. Active gabapentin (NEURONTIN) 300 MG capsule Take 300 mg by mouth in the morning and 300 mg in the evening. Active ibuprofen (ADVIL,MOTRIN) 600 MG tablet Take 600 mg by mouth every 6 (six) hours if needed for mild pain Active cetirizine (ZyrTEC) 10 MG tablet Take 10 mg by mouth 1 (one) time each day Active cholecalciferol (VITAMIN D-3) 1.25 MG (78170 UT) tablet Take 50,000 Units by mouth 1 (one) time per week Active donepezil (ARICEPT) 10 MG tablet Take 10 mg by mouth every night Active DULoxetine (CYMBALTA) [address] capsule Take 60 mg by mouth 1 (one) time each day Do not crush or chew. Active memantine (NAMENDA) 10 MG tablet Take 10 mg by mouth 1 (one) time each day Active zolpidem (AMBIEN) 10 MG tablet Take 10 mg by mouth at night if needed for sleep Active oxyCODONE (ROXICODONE) 5 MG immediate release tablet Take 5 mg by mouth every 4 (four) hours if needed for moderate pain or severe pain Active traMADol (ULTRAM) 50 MG tablet Take 50 mg by mouth every 6 (six) hours if needed for moderate pain Active Active Problems Problem Noted Date Diagnosed Date Cyst of kidney 09/01/2023 Family History Medical History Relation Comments Anxiety disorder Mother Depression Mother Relation Status Comments Father Mother Social History Tobacco Use Types Packs/Day Years Used Date Smoking Tobacco: Never Smokeless Tobacco: Never Alcohol Use Standard Drinks/Week Comments Yes 0 (1 standard drink = 0.6 oz pur e alcohol) social Sex and Gender Information Value Date Recorded Sex Assigned at Not on file Legal Sex Male 3:44 PM EDT Gender Identity Not on file Sexual Orientation Not on file Plan of Treatment Health Maintenance Due Date Last Done Comments Colorectal Cancer Screening: Annual FOBT 01/21/2009 Colorectal Cancer Screening: Colonoscopy 01/21/2009 Colorectal Cancer Screening: Sigmoidoscopy 01/21/2009 Pneumococcal Vaccine: 50+ Ye ars (1 of 1 - PCV) 01/21/2010 Influenza Vaccine (#1) 2025 Hepatitis B Vaccine Aged Out No longe r eligible based on patient's age to complete this topic Insurance Care Teams Outsole Caser Relationship Specialty Start Date End Date Sadie Vázquez APRN [address] [place] [address] PCP - General Internal Medicine 05/21/23
--- OUTSIDE RECORDS SUMMARY | 2025-09-22 12:15 | XMS_ITS | Encounter Summary ---
Author Organization [employer] Address [address] [place] [address] Care Team Providers Care Substation Technician Name Role Phone Sheba Wright MD Primary Care Provider Encounter Details Date Type Department Care Team (Late st Contact Info) Description 09/02/2025 Results Follow-Up Urogynecology - [address] [place] [phone] Sheree Boyd RN Social History Tobacco Use Types Packs/Day Years [...] of Assessment Author No 07/04/2025 7:46 AM EDT [place], [place], RN * Do you have serious difficulty [...] Pj Irwin RN documented in this encounter Plan of Treatment Upcoming Encounters Date Type Department Care Team (Late st Contact Info) Description 09/28/2025 8:45 AM EST Appointment [facility] Xray [address] [place] [phone] 10/10/2025 9:00 AM EST Consult Orthopedic Surgery [facility] [address] [facility] [address] [place] [phone] Paul Richter MD [address] [address] 11/24/2025 10:00 AM EST Office Visit Orthopedic Surgery [facility] [address] [facility] [address] [place] [phone] Davy Gardner DPM [address] [phone] 12/05/2025 2:30 PM EST Office Visit [facility] Hematology Oncology [address] [place] [phone] Melecio Posey MD [address] [place] [phone] 12/22/2025 10:45 AM EST Office Visit Bariatric Surgery [facility] [address] [facility] [address] [place] [phone] Marcos Curtis MD [address] [place] [phone] 04/17/2026 1:00 PM EDT Office Visit Gastroenterology - [address] [facility] [address] [place] [address] Mary Silverman PA [address] [facility] [address] [place] [address] documented as of this encounter Goals Goal [...] on filedocumented in this encounter Care Teams Substation Technician Relationship Specialty Start Date End Date Sheba Wright MD [address] [place] [id number] PCP - General Internal Medicine 08/22/21 documented as of this encounter
== END 2025-09-22 10:38 | disposition home or self-care (01) ==
LOC: HO.HPHYS 10:13
PROVIDERS: Visit Provider Physician Assistant
DX: M53.3 Sacrococcygeal disorders, not elsewhere classified (principal); G89.29 Other chronic pain; M25.552 Pain in left hip; M70.62 Trochanteric bursitis, left hip
CPT/HCPCS: 20610; 99213

== ENCOUNTER → 2025-09-22 10:12 | Outpatient (BNVA) | payer MEDICAID, SELFPAY | PROVIDERS: Visit Provider Physician Assistant | DX: M70.62 Trochanteric bursitis, left hip (principal); M25.552 Pain in left hip; M53.3 Sacrococcygeal disorders, not elsewhere classified; G89.29 Other chronic pain | CPT/HCPCS: 20610; 99212; J2003; J3301 ==

== ENCOUNTER 2025-10-24 06:43 | Day surgery (SDC) | payer MEDICAID, SELFPAY ==
[2025-10-13 09:56] VITALS: BMI 28.0
[2025-10-13 10:36] VITALS: BMI 29.2
--- NOTE | 2025-10-13 12:34 | HO.ANESPROP2 ---
Documented by User: Serena Chavez NP 10/21/25 12:58 HPI - Anesthesia Eval Consult details Narrative: 65yo F for Left Sacroiliac Joint Injection, 10/24/25 Anesthesia Pre-Procedure Meds Is the patient on any of the following meds?: GLP1/DPP4 PMFSH Active Problems Active Problems: All Active Problems Trochanteric bursitis of left hip (Acute) Chronic SI joint pain (Acute) Left hip pain (Acute) Past Medical History Medical History Diarrhea Diabetes Fibromyalgia Chronic pain Fatigue Bruises easily Forgetfulness Asthma Memory deficit Migraines GERD (gastroesophageal reflux disease) Anxiety Hip pain, left Surgical History Surgical History H/O shoulder surgery History of back surgery History of carpal tunnel surgery History of cancer surgery H/O: section H/O: knee surgery (Unknown) Social History Social History Are you a primary auto care center manager to a significant other at home: No Do you presently have visiting nurse or other home services: Yes (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 If so, by whom?: No Are you DNR?: No Advance Directives: No Advance Directives Information Provided: Yes Advance Directives on File: No Meds Allergies Allergy/AdvReac Type Severity Reaction Status Date / Time Gadolinium-Containing Allergy Hives Verified 10/24/25 06:56 Contrast Medi ibuprofen Allergy Unknown Verified 10/24/25 06:56 sulfamethoxazole (From Allergy rash, GI Verified 10/24/25 06:56 Bactrim) upset trimethoprim (From Bactrim) Allergy rash, GI Verified 10/24/25 06:56 upset Home Medications ?Medication ?Instructions ?Recorded ?Confirmed ?Last Taken ?Type cholecalciferol (vitamin D3) 50 50 mcg PO DAILY 09/19/25 10/24/25 Unknown History mcg (2,000 unit) tablet (Vitamin D3) donepezil 10 mg tablet 10 mg PO DAILY 09/19/25 10/24/25 Unknown History duloxetine 60 mg capsule,delayed 60 mg PO DAILY 09/19/25 10/24/25 Unknown History release esomeprazole magnesium 40 mg 40 mg PO QAM 09/19/25 10/24/25 Unknown History capsule,delayed release meloxicam 15 mg tablet 15 mg PO DAILY 09/19/25 10/24/25 10/20/25 History memantine 10 mg tablet 10 mg PO DAILY 09/19/25 10/24/25 Unknown History mirtazapine 7.5 mg tablet 7.5 mg PO QAM 09/19/25 10/24/25 Unknown History naltrexone 50 mg tablet 50 mg PO QAM 09/19/25 10/24/25 Unknown History sumatriptan succinate 25 mg tablet 25 mg PO DAILY PRN Migraine 09/19/25 10/24/25 Unknown History Headache tirzepatide 5 mg/0.5 mL 5 mg subcut QWEEK 10/13/25 10/24/25 10/09/25 History subcutaneous pen injector albuterol sulfate 90 mcg/actuation 2 puff inhalation Q4-6H PRN 10/24/25 10/24/25 Unknown History aerosol inhaler Shortness Of Breath Or Wheezing Exam Height,Weight and Vital Signs: Height 5 ft 4 in Weight 77.111 kg Assessment and Plan Assessment Anesthesia Assessment: Chart Reviewed Documented by User: Delisa Maier MD 10/24/25 08:05 [facility] Past Medical History Medical History Diarrhea Diabetes Fibromyalgia Chronic pain Fatigue Bruises easily Forgetfulness Asthma Memory deficit Migraines GERD (gastroesophageal reflux disease) Anxiety Hip pain, left Family History Family history of problems with anesthesia: No Surgical History Surgical History H/O shoulder surgery History of back surgery History of carpal tunnel surgery History of cancer surgery H/O: section H/O: knee surgery (Unknown) History of Problems with Anesthesia: No Social History Social History Are you a primary auto care center manager to a significant other at home: No Do you presently have visiting nurse or other home services: Yes (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 If so, by whom?: No Are you DNR?: No Advance Directives: No Advance Directives Information Provided: Yes Advance Directives on File: No Meds Allergies Allergy/AdvReac Type Severity Reaction Status Date / Time Gadolinium-Containing Allergy Hives Verified 10/24/25 06:56 Contrast Medi ibuprofen Allergy Unknown Verified 10/24/25 06:56 sulfamethoxazole (From Allergy rash, GI Verified 10/24/25 06:56 Bactrim) upset trimethoprim (From Bactrim) Allergy rash, GI Verified 10/24/25 06:56 upset Home Medications ?Medication ?Instructions ?Recorded ?Confirmed ?Last Taken ?Type cholecalciferol (vitamin D3) 50 50 mcg PO DAILY 09/19/25 10/24/25 Unknown History mcg (2,000 unit) tablet (Vitamin D3) donepezil 10 mg tablet 10 mg PO DAILY 09/19/25 10/24/25 Unknown History duloxetine 60 mg capsule,delayed 60 mg PO DAILY 09/19/25 10/24/25 Unknown History release esomeprazole magnesium 40 mg 40 mg PO QAM 09/19/25 10/24/25 Unknown History capsule,delayed release meloxicam 15 mg tablet 15 mg PO DAILY 09/19/25 10/24/25 10/20/25 History memantine 10 mg tablet 10 mg PO DAILY 09/19/25 10/24/25 Unknown History mirtazapine 7.5 mg tablet 7.5 mg PO QAM 09/19/25 10/24/25 Unknown History naltrexone 50 mg tablet 50 mg PO QAM 09/19/25 10/24/25 Unknown History sumatriptan succinate 25 mg tablet 25 mg PO DAILY PRN Migraine 09/19/25 10/24/25 Unknown History Headache tirzepatide 5 mg/0.5 mL 5 mg subcut QWEEK 10/13/25 10/24/25 10/09/25 History subcutaneous pen injector albuterol sulfate 90 mcg/actuation 2 puff inhalation Q4-6H PRN 10/24/25 10/24/25 Unknown History aerosol inhaler Shortness Of Breath Or Wheezing Exam Airway Mallampati Class: II TM Dist: >3cm Neck ROM: Full Heart: rrr Lungs: cta Assessment and Plan Assessment Anesthesia Assessment: Anesthesia Plan Discussed Final Anesthetic Review Family History of Problems with Anesthesia: No History of Problems with Anesthesia: No NPO: Yes ASA Class: II Final Preanesthetic Review: No Changes in Pt Med Stat, Meds/Allgs Chart Reviewed, Consent Obtained/Reviewed and Anes Risks/Benef Reviewed Patient Risk: Low Procedure Risk: Low Anesthetic Plan Anesthetic Plan: MAC: and Agree w/ Assess. and Plan Disposition: Standard PACU
--- NOTE | ~2025-10-24 | FL_ITS ---
EXAMINATION: FL GUIDANCE ONLY HISTORY: Procedural guidance COMPARISON: None available. TECHNIQUE: Fluoroscopy time: 13 seconds. Cumulative Dose: 3.30 mGy. DAP: 115.59 uGym2 Images: 3. FINDINGS: Fluoroscopic spot films of the left hemipelvis demonstrate a needle and contrast material in the region of the sacroiliac joint. FL/FL guidance in OR IMPRESSION: Fluoroscopy during procedure. Please see procedure report for additional information. Electronically signed by: Marcos French MD 10/25/2025 07:19 AM [facility]
[2025-10-24 07:21] LABS: Glucose, Whole Blood 98 mg/dL (60-115)
[2025-10-24 07:22] VITALS: BP 99/61; PULSE 60; RESP 15; TEMP 36.4; O2SAT 98
[2025-10-24] MEDS: Lactated Ringers 1,000 ML 100 ML IVCONT (07:25)
--- NOTE | 2025-10-24 07:41 | MHC.SHP ---
Pre-Procedural Eval Section A - 24 Hr Update-Section A only Date of Service: 10/24/25 The patient is an INPATIENT: No Section B - Complete if H&P > 30 days Chief Complaint: Sacrococcygeal disorders,chronic pain Details of Present Illness: History of lumbar fusion, left SI joint pain Relevant Family History (Specify if Yes): No Relevant Social History: None Present Medications: see Short Stay Collaborative assessment Medical History: No relevant PMH History of Previous Operations: Relevant previous surgery/procedure and date(s) (Lumbar fusion) Allergies: Allergies Allergy/AdvReac Type Severity Reaction Status Date / Time Gadolinium-Containing Allergy Hives Verified 10/24/25 06:56 Contrast Medi ibuprofen Allergy Unknown Verified 10/24/25 06:56 sulfamethoxazole (From Allergy rash, GI Verified 10/24/25 06:56 Bactrim) upset trimethoprim (From Bactrim) Allergy rash, GI Verified 10/24/25 06:56 upset Review of Systems Sugical H&P ROS: Negative: Constitution, Cardiovascular, Respiratory, Neurological, Psychiatric, Hem-Onc, Allergic/Immunologic, Gastrointestinal, Genitourinary, Musculoskeletal, Integumentary, Endocrine and Eyes/Ears/Nose/Throat Exam Surgical H&P Exam: Normal: HEENT, Normal: Heart, Normal: Lungs, Normal: Extremities, Normal: Abdomen, Normal: Skin and Normal: Neurological Plan Diagnosis/Plan: Unchanged I have reviewed the history and physical and performed a pertinent physical examination on my patient. No changes have occurred unless specified. Time Spent With Patient Time: Total time managing care of this patient today ____ minutes.
--- NOTE | 2025-10-24 07:45 | W.PM.OPN ---
Operative Note Operative Note Date of Service: 10/24/25 Narrative: Procedure performed: Left sacroiliac joint injection Preop diagnosis: SI joint mediated pain, sacroiliitis Postop diagnosis: The same Anesthesia: Mac After informed consent was obtained patient was brought into the procedure room and placed in prone position on the procedure table. Skin over lumbar sacral area was prepped and draped in the usual sterile manner. The inferior portion of the left sacroiliac joint was visualized utilizing fluoroscopy. 3.5 in 22 gauge spinal needle was introduced percutaneously and advanced into the joint. Needle placement was verified utilizing 0.5 cc of Omnipaque contrast solution. 2.5 cc of therapeutic solution containing 40 mg of triamcinolone and 2% lidocaine was injected after negative aspiration for blood. The C-arm was obliqued about 30? in the contralateral direction an area just medial the proximal portion of the sacroiliac joint was visualized. 3.5 in 22 gauge spinal needle was introduced percutaneously and advanced to enter the area. Once in place, needle placement was identified utilizing 1 cc of Omnipaque contrast solution. Total volume of 2.5 cc containing 40 mg of triamcinolone and 2% lidocaine was injected to block the lateral branches at the sacroiliac ligament. Radiation exposure was documented in the chart.
[2025-10-24 08:03] VITALS: BP 93/53; PULSE 61; RESP 16; TEMP 36.8; O2SAT 99
[2025-10-24 08:05] VITALS: BP 91/53; PULSE 64; RESP 15; O2SAT 99
[2025-10-24 08:10] VITALS: BP 101/63; PULSE 64; RESP 14; O2SAT 99
[2025-10-24 08:15] VITALS: BP 105/63; PULSE 66; RESP 12; TEMP 36.4; O2SAT 99
[2025-10-24 08:20] VITALS: BP 102/65; PULSE 60; RESP 12; TEMP 36.4; O2SAT 99
== END 2025-10-24 09:06 | disposition home or self-care (01) ==
PROVIDERS: Visit Provider Physical Medicine & Rehabilitation
PROC: (CPT 27096; principal; 2025-10-24 07:30)
DX: M53.3 Sacrococcygeal disorders, not elsewhere classified (principal); G89.29 Other chronic pain; M46.1 Sacroiliitis, not elsewhere classified; M25.552 Pain in left hip; M70.62 Trochanteric bursitis, left hip; R26.2 Difficulty in walking, not elsewhere classified; F41.9 Anxiety disorder, unspecified; Z98.890 Other specified postprocedural states
CPT/HCPCS: 27096; 82947; J2003; J2704; J3010; J3301; Q9967

== ENCOUNTER → 2025-10-24 06:43 | Outpatient (BNV) | payer MEDICAID, SELFPAY | PROVIDERS: Visit Provider Physical Medicine & Rehabilitation | DX: M46.1 Sacroiliitis, not elsewhere classified (principal) | CPT/HCPCS: 27096 ==